=== PATIENT | female | born 1960 | race Caucasian/White ===

== ENCOUNTER → 2018-10-27 | Outpatient (CLI) | payer OTHER ==
--- NOTE | 2018-10-28 11:07 | MM ---
Reason for exam: screening (asymptomatic). History: Patient is postmenopausal. Family history of breast cancer in maternal grandmother. Physical Findings: A clinical breast exam by your physician is recommended on an annual basis and results should be correlated with mammographic findings. MG Screening Mammo w CAD Bilateral CC and MLO view(s) were taken. No prior studies available for comparison. The breast tissue is heterogeneously dense. This may lower the sensitivity of mammography. There is an approximately 2cm mass at the 12 o'clock position on the right breast 6.7cm from nipple. This is highly suspicious. No suspicious abnormality on the left. ASSESSMENT: Incomplete: need additional imaging evaluation, BI-RAD 0 RECOMMENDATION: Ultrasound of the right breast. [facility] will attempt to contact patient to return for ultrasound.
== END | disposition home or self-care (01) ==
LOC: RADMAMWWP 12:59
PROVIDERS: ATTEND Internal Medicine
DX: Z12.31 Encounter for screening mammogram for malignant neoplasm of breast (principal)
CPT/HCPCS: 77067

== ENCOUNTER → 2018-11-17 | Outpatient (CLI) | payer OTHER ==
[2018-11-17 12:39] VITALS: BP 133/73; PULSE 73; RESP 18; TEMP 97.4; BMI 27.1
--- NOTE | 2018-11-17 13:11 | P.GSHP ---
History of Present Illness H&P Date: 11/17/18 Chief Complaint: mass right breast Erin is a 58 year old white female who noted a lump in her right breast about 3 weeks ago. She than had a bilateral mammogram performed and [id number]. This revealed a 2 cm mass at the 12 o'clock position in the right breast. Ultrasound of the right breast was recommended. Ultrasound was performed and [id number]. This revealed a 2.9 x 3.4 cm spiculated solid lesion at 1:00, a 0.9 x 0.9 solid lesion at 1:00 and multiple nodes in the axilla of the largest measuring 3.2 x 1.9 cm. The patient states his noted some pinching in her breast. The patient has not noted any skin changes. She has not noted any nipple discharge. The reason she felt a mass initially was that her dog had jumped on her chest and after which she felt a lump in her breast. Family history: maternal grandmother: breast cancer Hormonal history: menarche: 9 : 1 at 27, 1 child, breast fed, yes menopause: 53 BCP: none hormones: none Past surgical history: 1. Dislocated elbow 2. Compound fracture right arm 3. Crushed ankle 4. D&C Past Medical History: 1. HTN 2. left arm won't extend all the way Social History: smoke: 1 PPD/30 years alcohol: none drugs: none - Constitutional Constitutional: Denies chills, Denies fever - EENT Eyes: bilateral blurred vision Ears: deny: decreased hearing, tinnitus Ears, nose, mouth and throat: Denies headache, Denies sore throat - Breasts Breasts: bilateral: as per HPI - Cardiovascular Cardiovascular: Reports high blood pressure - Respiratory Comment: smoker - Gastrointestinal Gastrointestinal: Denies abdominal pain, Denies diarrhea, Denies nausea, Denies vomiting - Genitourinary (Female) Genitourinary: Denies dysuria, Denies hematuria - Menstruation Menstruation: Reports postmenopausal - Musculoskeletal Comment: arthritis - Integumentary Integumentary: Denies pruritus, Denies rash - Neurological Neurological: Denies numbness, Denies weakness - Psychiatric Comment: bipolar post traumatic stress disorder Psychiatric: Reports anxiety, Reports depression - Endocrine Endocrine: Reports fatigue, Denies weight change - Hematologic/Lymphatic Comment: none - Allergic/Immunologic Allergic/Immunologic: Reports seasonal allergies Past Medical History History of Any Multi-Drug Resistant Organisms: None Reported Past Psychological History: Anxiety, Bipolar, Depression, PTSD Smoking Status: Current every day smoker Medications and Allergies Home Medications Medication Instructions Recorded Confirmed Type Cholecalciferol [Vitamin D3] 1,000 unit PO DAILY 11/17/18 11/17/18 History Lisinopril 30 mg PO DAILY 11/17/18 11/17/18 History Allergies Allergy/AdvReac Type Severity Reaction Status Date / Time No Known Allergies Allergy Unverified 11/17/18 12:39 Surgical - Exam Vital Signs Temp Pulse Resp BP Pulse Ox 97.4 F L 73 18 133/73 99 11/17/18 12:34 11/17/18 12:34 11/17/18 12:34 11/17/18 12:34 11/17/18 12:34 - General well developed, well nourished, no distress - Eyes normal ocular movement, no icteric - ENT no hearing loss, no congestion - Neck no masses, trachea midline - Respiratory normal respiratory effort, clear to auscultation - Cardiovascular Rhythm: regular Heart Sounds: normal: S1, S2 - Abdomen Abdomen: soft, non tender, no guarding, no rigid, no rebound - Integumentary normal turgor - Neurologic no disoriented, no combative - Musculoskeletal normal gait, normal posture - Psychiatric oriented to time, oriented to person, oriented to place, speech is normal, memory intact Breast examination: Right breast: Fibrocystic changes, increased nodularity at approximately the upper 12 o'clock position approximately 3 cm x 2 cm in size Right axilla: Adenopathy is noted Left breast: Multiple positional exam fibrocystic changes no dominant masses or nodules of concern Left axilla: Shoddy adenopathy Results Mammogram and ultrasound results reviewed Assessment and Plan Assessment: Impression: 1. Mass right breast 2. Right axillary adenopathy 3. Abnormal mammogram and ultrasound 4. Hypertension 5. Bipolar 6. Anxiety depression Plan: 1. Ultrasound-guided core biopsy right breast and axilla 2. Medical management of medical conditions 3. Follow-up after ultrasound-guided core biopsy CC: Donna Cadet, [facility]
== END ==
LOC: WWCWWP 11:54
PROVIDERS: ATTEND Surgery
DX: Z53.9 Procedure and treatment not carried out, unspecified reason (principal)

== ENCOUNTER → 2018-11-23 | Day surgery (SDC) | payer OTHER ==
[2018-11-23 11:58] VITALS: TEMP 98; BMI 27.1
--- NOTE | 2018-11-23 15:20 | USB ---
EXAMINATION TYPE: US biopsy breast VAD RT, MG diagnostic mammo RT wo CAD, US breast needle core addl RT DATE OF EXAM: 11/23/2018 CLINICAL HISTORY: R92.8 ABN MAMMO. TECHNIQUE: Ultrasound guided core biopsy of the right breast. COMPARISON: 10/27/2018 and 11/10/2018 FINDINGS: The procedure of ultrasound guided core biopsy was explained to the patient. Benefits, alt ernatives, and risks were discussed. An informed consent was then obtained. Preprocedural timeout w as performed. Preprocedural imaging demonstrates the previously described separate right breast destiney s at the 1:00 position to be contiguous measuring up to 3.8 cm in maximal dimension. Biopsy markers w ere placed at the most cranial and caudal aspect of this mass. At least 3 large morphologically abnor mal lymph nodes were seen on real-time imaging. Biopsy of one of these nodes was performed with [place] kacie placement. Site A: The patient was placed in supine positioning for imaging and for the procedure. The overlying skin was prepped and draped in usual sterile fashion. 10 cc of lidocaine buffered with bicarbonate w as used as anesthetic into the skin and subcutaneous tissue as well as 7 cc of lidocaine with epineph rine within the deeper subcutaneous soft tissues at the site of biopsy at the 1:00 position surroundi ng the breast mass. Under ultrasound guidance, a 12-gauge vacuum assisted biopsy gun device was used to obtain 5 core christine ples. Following this, a ribbon-shaped biopsy marker was left at the cranial aspect of the mass coil- shaped marker was left at the caudal aspect of the mass. Site B: The patient was placed in supine positioning for imaging and for the procedure. The overlying skin was prepped and draped in usual sterile fashion. 10 cc of lidocaine buffered with bicarbonate w as used as anesthetic into the skin and subcutaneous tissue up to an abnormal right axillary lymph no de. Under ultrasound guidance, a 18-gauge nonvacuum biopsy gun device was used to obtain 3 core samples. Following this, a Hydromark was left in lymph node. The patient tolerated the procedure well without any immediate complication. The patient was kept in the radiology department for short stay after the procedure and then discharged home in stable condi tion. IMPRESSION: Successful, uncomplicated ultrasound guided core biopsy of a highly suspicious the right breast, full pathology results to follow. Of note connection of the previously described discretely s eparate masses at the 1:00 position was demonstrated with maximal dimension of the 1:00 mass of 3.8 c m. Biopsy markers were left at the cranial and caudal aspects of this mass. Multiple morphologically abnormal lymph nodes are also seen within the right axilla, one of which was biopsied with a Hydromar k placed.
[2018-11-23 16:03] VITALS: BP 112/67; PULSE 68
== END | disposition home or self-care (01) ==
LOC: RADUSWWP 11:20
PROVIDERS: ATTEND Surgery
DX: C50.411 Malignant neoplasm of upper-outer quadrant of right female breast (principal); Z17.0 Estrogen receptor positive status [ER+]
CPT/HCPCS: 88305; 77065; 19083; 19084; A4648; J2001

== ENCOUNTER → 2018-12-02 | Outpatient (CLI) | payer OTHER ==
[2018-12-02 12:33] VITALS: BP 136/75; PULSE 92; RESP 20; TEMP 97.4; BMI 27.1
--- NOTE | 2018-12-02 12:53 | P.PN ---
Subjective Progress Note Date: 12/02/18 Principal diagnosis: Erin is a 58-year-old white female status post right breast core biopsy on which revealed an invasive ductal carcinoma. Additionally lymph node was biopsied which was also positive for invasive ductal carcinoma. The patient's clinical staging reveals a tumor to be approximately 3.8 cm, she is a positive axillary nodes. There are approximately 3 noted on her ultrasound at this time she isn't M0. The lesion is ER/KY positive and HER-2 negative. The patient has no complaints related to the biopsy. She is very anxious in general. Objective - Vital Signs Vital signs: Vital Signs Temp 97.4 F L 12/02/18 12:28 Pulse 92 12/02/18 12:28 Resp 20 12/02/18 12:28 BP 136/75 12/02/18 12:28 Pulse Ox 99 12/02/18 12:28 Intake & Output 12/01/18 12/02/18 12/02/18 18:59 06:59 18:59 Weight 71.668 kg - Exam BMI 27.1 - Constitutional General appearance: Present: average body habitus - EENT Eyes: Present: EOMI ENT: Present: hearing grossly normal - Respiratory Respiratory: bilateral: CTA - Cardiovascular Rhythm: regular Heart sounds: normal: S1, S2 - Integumentary Integumentary Comment(s): Breast examination on the right side: Core biopsy site has some scabbing added is no evidence of infection is otherwise clean and dry No hematoma mild ecchymosis - Musculoskeletal Musculoskeletal: Present: gait normal - Psychiatric Psychiatric Comment(s): anxious Assessment and Plan Assessment: Impression: 1. Stage IIA invasive ductal right breast cancer, patient is having a PET scan performed 2. Rule out metastatic disease 3. Anxiety 4.HTN 5. Compound fracture in the past on the right arm I discussed with the patient and her significant other the pathology results in detail. I have suggested that genetic testing be performed. I've also recomm ended a PET scan be performed. The patient will be seen by medical and radiation oncology, and presented at tumor board. Secondary to the size of the tumor and the axillary nodes I would consider neoadjuvant chemotherapy. The patient is being taken by our nurse navigator due to radiation oncology at this time additionally we are scheduling a PET scan as well as an appointment with medical oncology. She will be presented at tumor board. Plan: 1. PET scan 2. Appointment with medical oncology 3. Genetic testing 4. Appt with radiation oncology 5. Presentation of case at tumor board 6. Follow-up here in 3 weeks Cc: [facility]
== END | disposition home or self-care (01) ==
LOC: WWCWWP 12:02
PROVIDERS: ATTEND Surgery
DX: Z53.9 Procedure and treatment not carried out, unspecified reason (principal)

== ENCOUNTER → 2018-12-09 | Outpatient (CLI) | payer OTHER ==
--- NOTE | 2018-12-11 14:00 | PE ---
Nuclear medicine PET/CT HISTORY: Breast carcinoma right breast, initial Patient received 13.5 mCi F-18 FDG intravenously in delayed scanning was performed from the skull bas e to the mid thighs. Localization and attenuation correction CT scan was performed. Correlation to ultrasound right breast 11/10/2018 Neck and CHEST: There is right breast mass present with associated hypermetabolic uptake as noted on ultrasound. SUV is 9. Extensive right axillary adenopathy is also present. There is associated hyperm etabolic uptake. SUV is 8.9. Additionally there is internal mammary adenopathy, SUV is 4.3. Subcentim eter nodule is present on axial image 87 with smooth margins measuring only 5 mm. Questionable nodule left upper lobe axial image 72 anteriorly measuring only 4 mm. 3 mm nodule present in the left lower lobe on axial image 98. Axial image 83 in the central portion of the right upper lobe also shows a n odular density measuring 5 mm. ABDOMEN: No suspicious hypermetabolic uptake. No retroperitoneal adenopathy or ascites. There is a fo cus of low density present within the right lobe of the liver which is poorly defined but may measure as great as 5.5 cm. And extends towards the dome. Uptake in the anorectal region may be physiologic. Osseous structures show degenerative disc changes in the lower lumbar spine with facet arthropathy. N o suspicious hypermetabolic uptake. IMPRESSION: Findings compatible with patient's history of breast carcinoma as described. Indeterminat e liver mass.
== END | disposition home or self-care (01) ==
LOC: RADPETMAIN 17:51
PROVIDERS: ATTEND Surgery
DX: C50.212 Malignant neoplasm of upper-inner quadrant of left female breast (principal)
CPT/HCPCS: 78815; A9552

== ENCOUNTER → 2018-12-30 | Outpatient (CLI) | payer OTHER ==
--- NOTE | 2018-12-31 21:40 | BMR ---
EXAMINATION TYPE: MR breast BILAT wo/w con DATE OF EXAM: 12/30/2018 COMPARISON: Exams dating back to 10/27/2018 HISTORY: malignant neoplasm right breast TECHNIQUE: A series of fat and water weighted images in the long and short axis views of both breasts are obtained in conjunction with dynamic contrast MRI with subtraction technique. The patient was i njected with 7 mL intravenous Gadavist gadolinium contrast. Three-dimensional and additional postpr ocessing imaging is created on independent workstation and reviewed during official interpretation of this study. FINDINGS: The breasts are composed of heterogenous fibroglandular tissue. There is moderate background parenchy mal enhancement, limiting mammographic sensitivity. The biopsy-proven moderately differentiated an infiltrative ductal carcinoma at the 1:00 position in the right breast indicated with a biopsy marker creating susceptibility artifact measures up to 3.0 c m in transverse dimension with the index mass measuring up to 3.6 cm in anterior posterior dimension and at least 2.3 cm in craniocaudal dimension. However there are 3 smaller masses measuring 7 mm, 7 m m and 5 mm at the level of the biopsy marker that span a total distance of 5.8 cm in anterior posteri or dimension when accounted for. However there are multiple abnormal foci of enhancement at the infer ior margin of this mass spanning a distance of 5.7 cm in anterior posterior dimension. This mass in t he right breast does cross midline to involve the 11:00 position as well as an additional focus cross ing midline meeting criteria for multicentric disease. Within the left breast there is an abnormally enhancing mass with type I and type II, persistent and plateau, kinetics measuring 5 mm marked on series 702 image 237 (subtraction images) this is also see n on image 239 and 45 of the delayed sequence. This is located at the 11:00 position approximately 2. 5-3 cm from the nipple. Biopsy is recommended of this mass. No additional suspicious masses are seen on the left. No suspicious internal mammary nor left axillary adenopathy are seen however there is markedly abnorm al numerous right intramammary and axillary lymph nodes. Intramammary lymph node is seen in the upper outer quadrant on image 185 measuring 6 mm in short axis and markedly abnormal matted lymph nodes in the right axilla are marked on subtraction images measuring up to 3.1 x 2.7 cm together. There are a t least 9 abnormal lymph nodes in the axilla bone. Suspicious left breast mass (type II and type I kinetics). Biopsy-proven right breast malignancy type III kinetics. Targeted left upper quadrant ultrasound is recommended IMPRESSION: BI-RADS [id number] malignancy. 1. Multiple right breast masses are seen spanning an anterior posterior dimension of 5.8 cm both with in the upper inner quadrant and upper outer quadrant relating to multicentric disease. 2. Suspicious 5 mm left breast mass with abnormal enhancement at the 11:00 position for which second look ultrasound is recommended and percutaneous biopsy prior to surgical intervention of the right br east. If no sonographic correlate is seen MRI guided biopsy would be recommended. 3. Markedly abnormal right axillary adenopathy and solitary abnormal right intramammary lymph node ly mph node. No abnormal internal mammary or left axillary adenopathy.
== END ==
LOC: RADMRIMAIN 07:22
PROVIDERS: ATTEND Surgery
DX: C50.212 Malignant neoplasm of upper-inner quadrant of left female breast (principal); N63.11 Unspecified lump in the right breast, upper outer quadrant; R59.0 Localized enlarged lymph nodes
CPT/HCPCS: C8937; C8908; A9585; 77049

== ENCOUNTER → 2019-01-05 | Outpatient (CLI) | payer OTHER ==
--- NOTE | 2019-01-05 14:21 | USB ---
Reason for exam: additional evaluation requested from prior study. History: Patient is postmenopausal and has history of breast cancer at age 58. Family history of breast cancer in maternal grandmother. Malignant US breast needle core addl RT of the right breast, November 23, 2018. Malignant US biopsy breast VAD RT of the right breast, November 23, 2018. Physical Findings: Nurse did not find any significant physical abnormalities on exam. US Breast Limited LT Left limited breast ultrasound including focal area of concern, retroareolar and axilla demonstrates a 0.8 x 0.6 x 0.4cm solid, hypoechoic, vascular lesion at 11 o'clock corresponds with MR, fibroadenoma versus carcinoma and a 1.1 x 0.8 x 0.5cm mixed lesion at 11 o'clock, complex cystic cluster. These results were verbally communicated with the patient and result sheet given to the patient on 01/05/19. ASSESSMENT: Suspicious, BI-RAD 4 RECOMMENDATION: Ultrasound core biopsy of the left breast. (x 2) Called Dr. Valdivia with mammographic findings. Biopsy scheduled for 01/20/19 at 11:30. PRELIMINARY REPORT CALLED AND FAXED TO DR. VALDIVIA ON 01/05/19.
== END | disposition home or self-care (01) ==
LOC: RADUSWWP 12:36
PROVIDERS: ATTEND Surgery
DX: R92.8 Other abnormal and inconclusive findings on diagnostic imaging of breast (principal)

== ENCOUNTER → 2019-01-10 | Outpatient (CLI) | payer OTHER ==
--- NOTE | 2019-01-11 16:57 | ECHOF ---
Referral Reason:Z01.818 pre-chemo; C50.411 breast cancer MEASUREMENTS -------- HEIGHT: 162.6 cm WEIGHT: 71.7 kg BP: IVSd: 1.1 cm (0.6 - 1.1) LVIDd: 3.7 cm (3.9 - 5.3) LVPWd: 1.2 cm (0.6 - 1.1) IVSs: 1.5 cm LVIDs: 2.6 cm LVPWs: 1.6 cm LAESV Index (A-L): 17.57 ml/m Ao Diam: 3.1 cm (2.0 - 3.7) AV Cusp: 1.8 cm (1.5 - 2.6) LA Diam: 3.4 cm (2.7 - 3.8) EPSS: 0.9 cm MV E Rupesh: 0.60 m/s MV DecT: 194 ms MV A Rupesh: 0.84 m/s MV E/A Ratio: 0.71 RAP: 5.00 mmHg RVSP: 18.33 mmHg MV EF SLOPE: 53.71 mm/s (70 - 150) MV EXCURSION: 1.18 cm (> 18.000) FINDINGS -------- Sinus rhythm. This was a technically good study. The left ventricular size is normal. There is mild concentric left ventricular hypertrophy. Overa ll left ventricular systolic function is normal with, an EF between 55 - 60 %. The right ventricle is normal in size. The left atrial size is normal. Left atrium is normal size by volume. The right atrial size is normal. Aneurysmal septum The aortic valve is trileaflet and appears structurally normal. The mitral valve is normal. There is trace mitral regurgitation. The tricuspid valve appears structurally normal. Mild tricuspid regurgitation present. There is n o evidence of pulmonary hypertension. The right ventricular systolic pressure, as measured by Doppl er, is 18.33mmHg. There is no pulmonic regurgitation present. The aortic root size is normal. The inferior vena cava was not well visualized. There is no pericardial effusion. CONCLUSIONS -------- 1. Sinus rhythm. 2. This was a technically good study. 3. The left ventricular size is normal. 4. There is mild concentric left ventricular hypertrophy. 5. Overall left ventricular systolic function is normal with, an EF between 55 - 60 %. 6. The right ventricle is normal in size. 7. The left atrial size is normal. 8. Left atrium is normal size by volume. 9. The right atrial size is normal. 10. Aneurysmal septum 11. The aortic valve is trileaflet and appears structurally normal. 12. The mitral valve is normal. 13. There is trace mitral regurgitation. 14. The tricuspid valve appears structurally normal. 15. Mild tricuspid regurgitation present. 16. There is no evidence of pulmonary hypertension. 17. The right ventricular systolic pressure, as measured by Doppler, is 18.33mmHg. 18. There is no pulmonic regurgitation present. 19. The aortic root size is normal. 20. The inferior vena cava was not well visualized. 21. There is no pericardial effusion. UNDERPRESSER HAND: Alejandra Mccarthy RDCS
== END | disposition home or self-care (01) ==
LOC: RADECHMAIN 14:15
PROVIDERS: ATTEND Internal Medicine Hematology & Oncology
DX: Z01.818 Encounter for other preprocedural examination (principal); I07.1 Rheumatic tricuspid insufficiency; C50.411 Malignant neoplasm of upper-outer quadrant of right female breast
CPT/HCPCS: 93306

== ENCOUNTER → 2019-01-12 | Day surgery (SDC) | payer OTHER ==
[2019-01-10 12:55] VITALS: BMI 27.1
[~2019-01-12] MED LIST: BUPIVACAIN-EPI 0.25%-1:200,000 30 ML VIAL SQ ONE; DEXAMETHASONE SOD PHOSPHATE 10 MG/ML 1 ML VIAL IV ONE; HEPARIN SODIUM,PORCINE 10,000 UNIT/ML 1 ML VIAL IV ONE; HEPARIN SODIUM,PORCINE 100 UNIT/ML 5 ML VIAL IV ONE; HYDROmorphone 0.5 MG/0.5 ML SYRINGE IVP PRN; LACTATED RINGERS 1,000 ML IV SCH; LIDOCAINE 1% 20 ML VIAL (10MG/ML) FOR IV START INTRADERMA ONE; MIDAZOLAM 2 MG/2 ML VIAL IV PRN; MIDAZOLAM 2 MG/2 ML VIAL ONE; ONDANSETRON 4 MG/2 ML VIAL IVP ONE; PROPOFOL 10 MG/ML 20 ML VIAL IV ONE; Pre Op ABX Message 1 EACH MISC MISCELLANE ONE; SCOPOLAMINE 1.5MG/72HR PATCH TRANSDERM ONE; ceFAZolin IN SWFI 2 GM/20 ML SYRINGE IVP ONE; fentaNYL (PF) 50 MCG/ML 2 ML AMP ONE
[2019-01-12 10:08] VITALS: TEMP 97.8
--- NOTE | 2019-01-12 11:13 | P.GSHP ---
History of Present Illness H&P Date: 01/12/19 CHIEF COMPLAINT: Breast cancer HISTORY OF PRESENT ILLNESS: The patient is a 50-year-old female diagnosed with breast cancer. She needs a Mediport placement for chemotherapy. PAST MEDICAL HISTORY: See list PAST SURGICAL HISTORY: See list CURRENT MEDICATIONS: See list. ALLERGIES: See list. SOCIAL HISTORY: No active tobacco or alcohol use. FAMILY HISTORY: Noncontributory. REVIEW OF ORGAN SYSTEMS: CONSTITUTIONAL: Has weight loss. PHYSICAL EXAMINATION: Vital signs: Stable GENERAL: Well developed and in no acute distress. Pleasant. HEENT: No sclera icterus. Extraocular movements grossly intact. Moist buccal mucosa. Head is atraumatic, normocephalic. Hears conversational speech. No nasal drainage. NECK: Supple without lymphadenopathy. No JV distention. CHEST: Non-labored respirations and equal bilateral excursions. CARDIOVASCULAR: Regular rate and rhythm. Palpable 2+ radial pulses. ABDOMEN: Nontender. MUSCULOSKELETAL: No clubbing, cyanosis or edema. NEUROLOGIC: No focal or lateralizing signs. PSYCH: Appropriate affect. Alert and oriented to person, place and time. ASSESSMENT: 1. Breast cancer 2. Need for chemotherapeutic access. PLAN: 1. Agree with Port-A-Cath placement. Past Medical History Past Medical History: Hypertension Additional Past Medical History / Comment(s): HAYFEVER. RT BREAST CA DIAGNOSED 12/2018. History of Any Multi-Drug Resistant Organisms: None Reported Additional Past Surgical History / Comment(s): dislocated elbow; compound fracture right arm; crushed ankle; D&C; Past Anesthesia/Blood Transfusion Reactions: No Reported Reaction Smoking Status: Current every day smoker - Past Family History Mother Family Medical History: No Reported History Medications and Allergies Home Medications Medication Instructions Recorded Confirmed Type Cholecalciferol [Vitamin D3] 5,000 unit PO DAILY 11/17/18 01/12/19 History Lisinopril 30 mg PO DAILY 11/17/18 01/12/19 History ALPRAZolam [Xanax] 0.25 mg PO BID PRN 01/10/19 01/12/19 History QUEtiapine [SEROquel] 50 mg PO TID 01/10/19 01/12/19 History Allergies Allergy/AdvReac Type Severity Reaction Status Date / Time ACTH INJECTION Allergy HEAD Uncoded 01/12/19 10:04 SWELLED UP Surgical - Exam Vital Signs Temp Pulse Resp BP Pulse Ox 97.8 F 66 18 156/75 99 01/12/19 10:07 01/12/19 10:07 01/12/19 10:07 01/12/19 10:07 01/12/19 10:07
--- NOTE | 2019-01-12 12:20 | P.OP ---
Date of Procedure: 01/12/19 Description of Procedure: SURGEON: DAPHNEY RHOADES MD SLITTING MACHINE FEEDER: None. PREOPERATIVE DIAGNOSES: 1. Breast cancer 2. Need for chemotherapeutic access. 3. Hypertensive heart disease 4. Anxiety 5. Bipolar disorder 6. Depressive disorder POSTOPERATIVE DIAGNOSES: 1. Breast cancer 2. Need for chemotherapeutic access. 3. Hypertensive heart disease 4. Anxiety 5. Bipolar disorder 6. Depressive disorder PROCEDURES PERFORMED: 1. Ultrasound guided central venous access of the right internal jugular venous vein. 2. Fluoroscopic guidance for central venous access right internal jugular vein less than 1 seconds. 3. Placement of right internal jugular power port 6 Lao by Brainloop, Xcela Plus Port ANESTHESIA: IV sedation with local. ESTIMATED BLOOD LOSS: 5 mL. SPECIMENS REMOVED: None. COMPLICATIONS: None. INDICATIONS: The patient is a 58-year-old female recently diagnosed with breast cancer. She presents for chemotherapeutic access. Benefits and risks of surgical intervention were described including bleeding, infection, mechanical problems with his port. Informed consent was obtained. DESCRIPTION OR PROCEDURE: Patient was brought into the operating room, laid in supine position. After adequate IV sedation, the chest and right neck were prepped and draped in a standard sterile fashion including the shoulder with ChloraPrep. Timeout protocol was confirmed with the surgical team regarding the patient's name, procedure to be performed including preoperative medications for which she received IV antibiotics. Bilateral SCDs were placed. An ultrasound was used to capture views of the right internal jugular vein including right carotid artery, which was patent and without thrombus along its course. The right IJ was then localized using anesthetic for the skin. A 16 Lao needle was used to access the IJ. A guidewire was advanced into the IJ with dark nonpulsatile venous blood. Two fingerbreadths distal to the clavicle, on the lateral third, a transverse 1.5 to 2 cm incision was deepened into the skin after localizing the skin. A pocket was created for the port. The port on the back table was flushed with heparinized saline and then attached to the catheter tubing. An adapter was fastened to the actual port site over the tubing. The port easily had fit snug into the pocket. A subcutaneous tunneler was placed along the open end of the tubing and brought out through the separate stab incision. Fluoroscopic guidance confirmed no kinking along the tubing and the port site. Next, the J-wire was exchanged for a catheter sheath for which the tubing was cut to 20 cm and then advanced through the catheter sheath. The Peel-away sheath was then removed and the tubing was secured at the junction of the superior vena cava as well as the right atrium. The tubing was found to be crossed however functional. This was all done under fluoroscopic guidance under 1 seconds. Easy pullback as well as return and aspiration was obtained of the port site. The skin incision was closed using layers using 3-0 Vicryl for the subcu followed by 4-0 Monocryl in a running subcuticular fashion. At the stick site this was also reapproximated using 4-0 Monocryl. The incisions were covered with Optifoam, The skin was cleansed and Exofin liquid glue was applied. Optifoam dressing was placed over the port site. A total of 20 mL of local anesthetic was placed. At the end of the procedure, needle, sponge, and instrument count was verified correct by certified surgical tech/first assistant. Heparin lock of 5 mL was placed. The patient was awoken and pain free and taken to the second stage postanesthesia care unit. The patient tolerated the procedure well. FINDINGS: 1. No thrombus encountered along the right carotid artery or internal jugular vein. 2. Access of the right internal jugular vein under ultrasound guidance. 3. Fluoroscopy of less than 1 seconds. Plan - Discharge Summary Discharge Rx Participant: No New Discharge Prescriptions: New Acetaminophen [Tylenol] 325 mg PO Q4H PRN #20 tab PRN Reason: Pain Continue Lisinopril 30 mg PO DAILY Cholecalciferol [Vitamin D3 (25 Mcg = 1000 Iu)] 5,000 unit PO DAILY QUEtiapine [SEROquel] 50 mg PO TID ALPRAZolam [Xanax] 0.25 mg PO BID PRN PRN Reason: Anxiety Discharge Medication List Cholecalciferol [Vitamin D3 (25 Mcg = 1000 Iu)] 5,000 unit PO DAILY 11/17/18 [History] Lisinopril 30 mg PO DAILY 11/17/18 [History] ALPRAZolam [Xanax] 0.25 mg PO BID PRN 01/10/19 [History] QUEtiapine [SEROquel] 50 mg PO TID 01/10/19 [History] Acetaminophen [Tylenol] 325 mg PO Q4H PRN #20 tab 01/12/19 [Rx] Follow up Appointment(s)/Referral(s): Daphney Rhoades MD [STAFF PHYSICIAN] - As Needed Patient Instructions/Handouts: *Surgery [facility] - (Anesthesia) Endoscopy Discharge Instructions, Implanted Venous Access Port (GEN), How to Care for Your Implanted Venous Access Port (DC) Activity/Diet/Wound Care/Special Instructions: May shower. No bathtub soaks. Remove dressing January 17. Expect bruising that will resolve in 2 weeks. Sleep on elevated pillows 2 to 3. May use tylenol for pain. No lifting of right arm over 10 pounds for 1 week. Discharge Disposition: HOME SELF-CARE
[2019-01-12 12:39] VITALS: BP 107/64; RESP 16
--- NOTE | 2019-01-12 12:48 | FL ---
Fluoroscopy INDICATION: Pain FINDINGS: Fluoroscopy time: 1 seconds. Images obtained: 1. IMPRESSIONS: 1. Documentation of fluoroscopy.
[2019-01-12 13:32] VITALS: PULSE 59
--- NOTE | 2019-01-12 13:37 | XR ---
EXAMINATION TYPE: XR chest 1V confirm line [facility] DATE OF EXAM: 01/12/2019 COMPARISON: None INDICATION: Port placement TECHNIQUE: Single frontal view of the chest is obtained. FINDINGS: The heart size is normal. The pulmonary vasculature is normal. The lungs are clear. Port is present on the right with the tip in superior vena cava region. No pneumothorax is evident IMPRESSION: 1. Placement of a port on the right with the tip in superior vena cava region. No pneumothorax is [place].
== END | disposition home or self-care (01) ==
LOC: OR 09:41
PROVIDERS: ATTEND Surgery Plastic and Reconstructive Surgery
DX: C50.911 Malignant neoplasm of unspecified site of right female breast (principal); Z45.2 Encounter for adjustment and management of vascular access device; F31.9 Bipolar disorder, unspecified; F41.9 Anxiety disorder, unspecified; I11.9 Hypertensive heart disease without heart failure; I10 Essential (primary) hypertension; E78.5 Hyperlipidemia, unspecified; F17.210 Nicotine dependence, cigarettes, uncomplicated; Z79.899 Other long term (current) drug therapy; Z98.890 Other specified postprocedural states
CPT/HCPCS: 77001; 36558; C1788; J2250; J1644; J1642; J1100; J2405; J3010; J2704; J0690

== ENCOUNTER → 2019-01-20 | Day surgery (SDC) | payer OTHER ==
[2019-01-20 10:57] VITALS: RESP 16; BMI 61.7
--- NOTE | 2019-01-20 13:01 | USB ---
EXAMINATION TYPE: US biopsy breast add'l VAD LT, US biopsy breast VAD LT, MG diagnostic mammo LT wo CAD DATE OF EXAM: 01/20/2019 CLINICAL HISTORY: R92.8. TECHNIQUE: Ultrasound guided core biopsy of left breast. COMPARISON: MRI breast dated 12/30/2018 and left breast ultrasound dated 01/05/2019 FINDINGS: The procedure of ultrasound guided core biopsy was explained to the patient. Benefits, alternatives, and risks were discussed. An informed consent was then obtained. Preprocedural timeout was performed. Site A: The patient was placed in supine positioning for imaging and for the procedure. The overlying skin was prepped and draped in usual sterile fashion. 10 cc of 1% lidocaine was used as anesthetic into the skin and subcutaneous tissue up the 0.8 cm solid vascular mass representing either a fibroadenoma versus carcinoma at the 11:00 position within the left breast. Under ultrasound guidance, a 12-gauge vacuum assisted biopsy gun device was used to obtain 4 core samples. Following this, a ribbon-shaped biopsy marker was left at the site of biopsy within the mass. Site B: The patient was placed in supine positioning for imaging and for the procedure. The overlying skin was prepped and draped in usual sterile fashion. Lidocaine buffered with bicarbonate was used as anesthetic into the skin and subcutaneous tissue up to the 1.1 cm complex cystic cluster at the 11:00 position within the left breast. Under ultrasound guidance, a 12-gauge vacuum assisted biopsy gun device was used to obtain 3 core samples. Following this, a coil-shaped biopsy marker left at the site of biopsy. Slight migration is suspected and if localization is needed, low suspicion, ultrasound-guided localization would be recommended of the residual mass. The patient tolerated the procedure well without any immediate complication. The patient was kept in the radiology department for short stay after the procedure and then discharged home in stable condition. IMPRESSION: Successful, uncomplicated ultrasound guided core biopsy of a solid mass at the 11:00 position (site A) corresponding to the MRI guided mass and a complex cystic cluster (site B) also development o'clock position, full pathology results to follow. Note migration of the coil-shaped biopsy marker of the second site. A localization is needed ultrasound-guided localization would be recommended of the residual mass. Pathology Results: Benign A. LEFT BREAST, ELEVEN O'CLOCK ZONE A, ULTRASOUND GUIDED CORE BIOPSY: Fibroadenoma/fibroadenomatoid hyperplasia with superimposed proliferative fibrocystic changes including columnar cell hyperplasia, usual type ductal hyperplasia, cysts, fibrosis and adenosis. B. LEFT BREAST, ELEVEN O'CLOCK ZONE B/C, ULTRASOUND GUIDED CORE BIOPSY: Scar and background fibrocystic changes including cysts and fibrosis. Recommendation Follow up mammogram of the left breast in 6 months. (Surgical consult for right breast cancer care) JEWELL
[2019-01-20 13:12] VITALS: BP 131/78; PULSE 78; TEMP 98
== END ==
LOC: RADUSWWP 10:23
PROVIDERS: ATTEND Surgery
DX: D24.2 Benign neoplasm of left breast (principal); N62 Hypertrophy of breast; N60.32 Fibrosclerosis of left breast; N60.22 Fibroadenosis of left breast; Z88.8 Allergy status to other drugs, medicaments and biological substances
CPT/HCPCS: 88305; 77065; 19083; 19084; A4648; J2001

== ENCOUNTER → 2019-01-27 | Outpatient (CLI) | payer OTHER ==
[2019-01-27 14:04] VITALS: BP 95/63; PULSE 78; RESP 16; TEMP 97.5; BMI 28.1
--- NOTE | 2019-01-27 14:46 | P.PN ---
Subjective Progress Note Date: 01/27/19 Principal diagnosis: Right breast biopsy-proven carcinoma Erin is a 58-year-old white female who initially presented with a complaint of noticing a lump in her right breast several weeks prior. She had bilateral mammogram performed and this revealed a 2 cm mass at the 12 o'clock position in the right breast. Ultrasound of the right breast was recommended. Ultrasound was performed on 32 819 this revealed a 2.9 x 2.4 cm spiculated solid lesion at 1:00, a 0.9 x 0.9 solid lesion at 1:00, moderate multiple nodes in the axilla the largest which measured 3.2 cm. The patient subsequently had ultrasound core biopsy infiltrating ductal carcinoma at this BC biopsy and right axillary lymph node positive for infiltrating ductal carcinoma. She subsequently had a breast MRI performed and the breast MRI revealed a questionable lesion in the contralateral left breast. She then underwent an ultrasound directed to this area a lesion was identified and a core biopsy was obtained. This lesion was benign on core biopsy. The patient has been seen by medical oncology. She has been recommended to undergo neoadjuvant preoperative chemotherapy. The patient has just completed her first course of chemotherapy. The patient would like to have breast conserving surgery when the time for surgical intervention is appropriate. She has met with radiation oncology. Family history: Maternal grandmother: Breast cancer Past surgical history: 1. Dislocated elbow 2. Flexure Right Arm 3. Question Could 4. D&C Past Medical History: 1. Hypertension 2. Left M1 Extend All the Way Social History: Smoking: One Pack per Day for 30 Years Alcohol: Negative Drugs: Negative Objective - Vital Signs Vital signs: Vital Signs Temp 97.5 F L 01/27/19 13:56 Pulse 78 01/27/19 13:56 Resp 16 01/27/19 13:56 BP 95/63 01/27/19 13:56 Pulse Ox 98 01/27/19 13:56 Intake & Output 01/26/19 01/27/19 01/27/19 18:59 06:59 18:59 Weight 74.389 kg - Exam BMI 28.2 - Constitutional General appearance: Present: average body habitus - EENT Eyes: Present: EOMI ENT: Present: hearing grossly normal - Neck Neck: Present: normal ROM - Respiratory Respiratory: bilateral: CTA - Cardiovascular Rhythm: regular Heart sounds: normal: S1, S2 - Gastrointestinal General gastrointestinal: Present: soft - Integumentary Integumentary Comment(s): Impression: 1. Patient with a biopsy-proven grade 2 12:00 breast Mass. of ductal carcinoma in situ, ER/KS positive, HER-2 negative, right axillary lymph node grade 3 invasive ductal carcinoma ER/KS positive, HER-2 negative, patient is recommended for neoadjuvant chemotherapy 2. Hypertension 3. Hyperlipidemia 4. Depression 5. Stage IIB right breast cancer 6. Biopsy left breast negative for cancer Plan: 1. The patient is going to undergo neoadjuvant chemotherapy 2. She most likely undergo breast preservation if she responds well to neoadjuvant chemotherapy 3. The cath in place 4. Follow-up in 3 months Cc: Donna Cadet N.P. [facility]
== END | disposition home or self-care (01) ==
LOC: WWCWWP 13:43
PROVIDERS: ATTEND Surgery
DX: Z53.9 Procedure and treatment not carried out, unspecified reason (principal)

== ENCOUNTER → 2019-03-03 | Day surgery (SDC) | payer OTHER ==
[2019-03-02 13:53] VITALS: BMI 27.8
[~2019-03-03] MED LIST changes: -BUPIVACAIN-EPI 0.25%-1:200,000 30 ML VIAL SQ ONE; -DEXAMETHASONE SOD PHOSPHATE 10 MG/ML 1 ML VIAL IV ONE; -HEPARIN SODIUM,PORCINE 10,000 UNIT/ML 1 ML VIAL IV ONE; -HEPARIN SODIUM,PORCINE 100 UNIT/ML 5 ML VIAL IV ONE; -HYDROmorphone 0.5 MG/0.5 ML SYRINGE IVP PRN; -LACTATED RINGERS 1,000 ML IV SCH; -LIDOCAINE 1% 20 ML VIAL (10MG/ML) FOR IV START INTRADERMA ONE; +LIDOCAINE 1% INJ 10MG/ML (20 ML MDV) ONE; +LIDOCAINE 1% INJ 10MG/ML (20 ML MDV) SQ ONE; -MIDAZOLAM 2 MG/2 ML VIAL IV PRN; -MIDAZOLAM 2 MG/2 ML VIAL ONE; -ONDANSETRON 4 MG/2 ML VIAL IVP ONE; -PROPOFOL 10 MG/ML 20 ML VIAL IV ONE; -Pre Op ABX Message 1 EACH MISC MISCELLANE ONE; -SCOPOLAMINE 1.5MG/72HR PATCH TRANSDERM ONE; -ceFAZolin IN SWFI 2 GM/20 ML SYRINGE IVP ONE; -fentaNYL (PF) 50 MCG/ML 2 ML AMP ONE
--- NOTE | 2019-03-03 09:40 | IR ---
PICC LINE PLACEMENT: HISTORY: Chemotherapy PROCEDURE: Ultrasound and fluoroscopic guidance of PICC line placement. COMPLICATIONS: None ANESTHESIA: 1. 1% Lidocaine locally. FINDINGS/TECHNIQUE: The procedure was explained to the patient. The risks, complications, benefits and alternatives were discussed and any questions were answered. Informed consent was obtained. The patient was placed supine on the fluoroscopic table and prepped and draped in the usual sterile fash ion. Utilizing a 21 gauge needle and sonographic and fluoroscopic guidance, access in the left basi lic vein vein was achieved and there is placement of a 0.018 guidewire. The vein is patent. A 4-F s judy was placed over the guidewire. The guidewire and dilator were removed and a 4-F. PICC line was placed through the sheath with the tip at the level of the SVC. The sheath was removed, the cathete r was flushed and sutured into position. The patient was stable throughout the procedure and remaine d stable upon discharge from the Department of Radiology. The vein puncture was patent under ultrasound. A bonilla scale image was obtained to document patency of the vein punctured. All elements of the maximal barrier technique were utilized. FLUOROSCOPY TIME: 0.2 minutes and one image submitted IMPRESSION: Successful PICC line placement under ultrasound and fluoroscopic guidance.
== END ==
LOC: CATHCVL 08:27
PROVIDERS: ATTEND Internal Medicine Hematology & Oncology
DX: C50.411 Malignant neoplasm of upper-outer quadrant of right female breast (principal); Z79.52 Long term (current) use of systemic steroids; Z79.899 Other long term (current) drug therapy; I10 Essential (primary) hypertension; E78.5 Hyperlipidemia, unspecified; F32.9 Major depressive disorder, single episode, unspecified; Z87.891 Personal history of nicotine dependence
CPT/HCPCS: 36573; C1751; C1769; J2001

== ENCOUNTER → 2019-05-25 | Outpatient (CLI) | payer OTHER ==
[2019-05-25 10:49] VITALS: BP 152/90; PULSE 74; RESP 16; TEMP 97.9; BMI 26.9
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
== END | disposition home or self-care (01) ==
LOC: WWCWWP 10:34
PROVIDERS: ATTEND Surgery
DX: Z53.9 Procedure and treatment not carried out, unspecified reason (principal)

== ENCOUNTER → 2019-06-06 | Outpatient (CLI) | payer OTHER ==
--- NOTE | 2019-06-06 14:23 | USB ---
Reason for exam: clinical finding. History: Patient is postmenopausal and has history of breast cancer at age 58. Family history of breast cancer in maternal grandmother. Benign US biopsy breast VAD LT of the left breast, January 20, 2019. Benign US biopsy breast add'l VAD LT of the left breast, January 20, 2019. Malignant US breast needle core addl RT of the right breast, November 23, 2018. Malignant US biopsy breast VAD RT of the right breast, November 23, 2018. Physical Findings: Nurse Summary: BB 2cm (nurse kp). US Breast RT Right complete breast ultrasound includes all four quadrants, the retroareolar region and axilla. Finding demonstrates a 1.4 x 3.0 x 0.7cm irregular, solid, hypoechoic, vascular lesion at 1 o'clock, a 0.5 x 0.5 x 0.3cm oval, solid, hyperechoic lesion at 2 o'clock, a 1.9 x 2.2 x 0.8cm oval axilla node, nonenlarged, improved, no cortex thickening and duct ectasia at the posterior nipple. These results were verbally communicated with the patient and result sheet given to the patient on 06/06/19. ASSESSMENT: Known biopsy proven malignancy, BI-RAD 6 RECOMMENDATION: Surgical consultation and localization and excision of the right breast. If breast conservation is pursued, ultrasound guided locationization is recommended and post procedure mammogram to assess relation to biopsy marker.
== END | disposition home or self-care (01) ==
LOC: RADUSWWP 12:29
PROVIDERS: ATTEND Surgery
DX: R92.8 Other abnormal and inconclusive findings on diagnostic imaging of breast (principal)

== ENCOUNTER 2019-06-13 07:30 | Day surgery (SDC) | payer OTHER ==
[~2019-06-13 07:30] MED LIST changes: +DEXAMETHASONE SOD PHOSPHATE 10 MG/ML 1 ML VIAL IV ONE; +HEPARIN SODIUM,PORCINE 5,000 UNIT/ML 1 ML VIAL SQ ONE; +HYDROmorphone 0.5 MG/0.5 ML SYRINGE IVP PRN; +LACTATED RINGERS 1,000 ML IV SCH; +LIDOCAINE 1% 20 ML VIAL (10MG/ML) FOR IV START INTRADERMA PRN; -LIDOCAINE 1% INJ 10MG/ML (20 ML MDV) ONE; -LIDOCAINE 1% INJ 10MG/ML (20 ML MDV) SQ ONE; +MIDAZOLAM 2 MG/2 ML VIAL IV PRN; +ONDANSETRON 4 MG/2 ML VIAL IVP ONE; +Pre Op ABX Message 1 EACH MISC MISCELLANE ONE; +SCOPOLAMINE 1.5MG/72HR PATCH TRANSDERM ONE
[2019-06-13 07:57] VITALS: RESP 16
[2019-06-13] MEDS ORDERED: ALPRAZolam 0.25 MG TAB PO ONE (08:01)
[2019-06-13] MEDS ORDERED: LIDOCAINE 1% INJ 10MG/ML (20 ML MDV) SQ ONE ×2 (09:15→09:34)
[2019-06-13] MEDS ORDERED: HEPARIN SODIUM,PORCINE 5,000 UNIT/ML 1 ML VIAL SQ ONE (09:43)
--- NOTE | 2019-06-13 09:46 | P.NAPBC ---
NAPBC Queries - NAPBC Queries Was patient's case review presented at [facility] tumor board? If no, comment.: Yes Was patient's pathology reviewed at [facility]? If no, comment.: Yes Was breast conservation surgery offered? If no, comment.: Yes Was sentinel node biopsy offered? If no, comment.: Yes Was diagnosis confirmed by percutaneous core biopsy? If no, comment.: Yes Is patient mastectomy patient?: No Was a preop referral to reconstructive surgeon offered?: Yes (patient wishes breast conservation) Clinical Stage: Stage IIB, [id number]+/DC+ Her2-
[2019-06-13] MEDS ORDERED: METHYLENE BLUE 10 MG/ML (10 ML VIAL) IV STA (10:10)
[2019-06-13] MEDS ORDERED: ceFAZolin 1,000 MG VIAL ONE (10:24)
[2019-06-13] MEDS ORDERED: fentaNYL (PF) 50 MCG/ML 2 ML AMP ONE (10:24)
[2019-06-13] MEDS ORDERED: MIDAZOLAM 2 MG/2 ML VIAL ONE (10:24)
[2019-06-13] MEDS ORDERED: LIDOCAINE 1% INJ 10MG/ML (20 ML MDV) ONE (10:24)
[2019-06-13] MEDS ORDERED: SODIUM CHLORIDE 0.9% 100 ML BAG ONE (10:24)
[2019-06-13] MEDS ORDERED: ePHEDrine SULFATE/0.9% NACL/PF 50 MG/5 ML SYRINGE IV ONE (10:24)
[2019-06-13] MEDS ORDERED: PROPOFOL 10 MG/ML 20 ML VIAL IV ONE (10:24)
[2019-06-13] MEDS ORDERED: SUCCINYLCHOLINE CHLORIDE 100 MG/5 ML SYR IV ONE (10:24)
--- NOTE | 2019-06-13 10:26 | NM ---
EXAMINATION TYPE: NM sentinel node injection DATE OF EXAM: 06/13/2019 COMPARISON: MRI of the breast dated 12/30/2018 HISTORY: Known right-sided breast cancer with request for sentinel node injection. TECHNIQUE AND FINDINGS: The procedure of sentinel lymph node injection was explained to the patient. The benefits, alternatives, and risks were discussed. An informed consent was then obtained. Prepr ocedural timeout was performed. Overlying skin is cleaned with sterile alcohol. Following this, 488 uCi Tc99m Tilmanocept was inject ed in the upper outer aspect of the right nipple intradermally. The patient tolerated the procedure well without any immediate complication. The patient was kept in the radiology department for short stay after the procedure and then taken to surgery for surgical p rocedure what is presumed intraoperative gamma probe will be used for sentinel lymph node detection. IMPRESSION: Right breast radiotracer injection for sentinel node localization as above.
[2019-06-13] MEDS ORDERED: DEXTROSE 5% IV ONE ×4 (10:30)
[2019-06-13] MEDS ORDERED: WATER IV ONE ×4 (10:30)
[2019-06-13] MEDS ORDERED: METHYLENE BLUE IV ONE ×4 (10:30)
[2019-06-13] MEDS ORDERED: LACTATED RINGERS 1,000 ML IV ONE (11:59)
--- NOTE | 2019-06-13 13:13 | P.OP ---
Date of Procedure: 06/13/19 Preoperative Diagnosis: Right breast cancer status post neoadjuvant chemotherapy Postoperative Diagnosis: Same Procedure(s) Performed: Right breast injection of methylene blue for lymphatic mapping, sentinel node biopsy, excisional lumpectomy of the area of concern and right breast via donought mastopexy with tissue transfer and onco- plastic tissue rearrangement Anesthesia: AARON Surgeon: Marlene Valdivia Estimated Blood Loss (ml): 15 IV fluids (ml): 1,000 Pathology: other (Lymph node right axilla, left breast tissue lumpectomy) Condition: stable Disposition: same day Indications for Procedure: Right breast cancer status post neoadjuvant chemotherapy Operative Findings: Fatty replaced nodes right axilla, dense breast tissue Description of Procedure: Erin was taken to the operating room and following induction of anesthesia 6 mL of half-strength methylene blue were injected in the periareolar area on the right. The breast was then massaged for 3 minutes. Following this the right br east and axilla were prepped and draped in a sterile fashion. The arm was free draped. The area of the axilla was approached initially. Preoperatively lymphokine, had been in injected in the periareolar area. Using the neoprobe the area of greatest radioactivity was identified. An incision was made into the area of the axilla at the axillary hairline. This was carried through the skin and subcutaneous tissue to the axillary tissue. Some of the axilla tissue appeared to be firm believed to be reactive from the prior neoadjuvant chemotherapy. Dissection in this area remove this tissue. After we entered the area of the axilla using the blue dye as a tracer as well as the neoprobe a very small approximately 3-4 mm radioactive blue lymph node was identified. The 10 second count on the lymph node was 1732. A second area of adenopathy was palpable with a minimal amount of blue discoloration, the radioactivity was very minimal but this area was resected as well. Further interrogation of the axilla revealed a 10 second count of approximately 7. Examination did not reveal any other lymph nodes of concern. Several palpable nodes had been resected. These appeared to be fatty replaced. Vessels of concern were ligated using 3-0 Vicryl suture. The axilla was then irrigated. The thoracodorsal nerve was palpated but not visually identifeid. The area of the axillary vein was identified and the tissues which were radioactive had been swept inferior from this location. After we were assured that hemostasis was attained the deep tissues were closed using 3-0 Vicryl suture. This is followed by closure of the skin with a 4-0 Monocryl. Consideration of a drain was entertained but it was not felt to be necessary. The area of the breast was then approached. A circumareolar incision which was not full-thickness was utilized. A second incision approximately 1 cm superior to this was performed and again not full-thickness and the tissue was de- epithelialized. The breast tissue was then entered . The superior incision. The tissue was dissected between the skin and the breast tissue and the subcutaneous tissue up to the area of the needles which had been placed pr eoperatively. These were elevated and dissection was performed medial and lateral to the needles to the pectoralis major muscle. Dissection was performed off of the pectoralis major muscle removing the tissue perpendicular to the area of entry into the breast. After the tissue had been removed it was painted for orientation. It was sent to radiology and confirmation the area of concern had been removed was obtained. The area was well irrigated no evidence of bleeding was noted. Titanium clips were placed to kacie the cavity. The medial and lateral pillars were then freed using the electrocautery device. The measurements medially were approximately 4 cm x 8 cm and laterally approximately 5 cm x 8 cm. This accounted for 72 cm of tissue mobilized. This tissue was drawn together in the midline and reapproximated using 3-0 Vicryl suture. Onco- plastic rearrangement close the defect of concern. The periareolar incision was closed using a 4-0 Vicryl suture in the dermal tissue. This was followed by a 4-0 Monocryl subcuticular suture. A 4-0 nylon skin suture was then placed. The patient tolerated the procedure in stable condition. All instrument and sponge counts were correct at the end of the case.
--- NOTE | 2019-06-13 13:15 | P.DS ---
Providers Attending physician: Marlene Valdivia Primary care physician: Stated None Plan - Discharge Summary Discharge Rx Participant: Yes New Discharge Prescriptions: No Action Cholecalciferol [Vitamin D3 (25 Mcg = 1000 Iu)] 5,000 unit PO DAILY ALPRAZolam [Xanax] 0.25 mg PO BID PRN PRN Reason: Anxiety Gabapentin [Neurontin] 300 mg PO HS Discharge Medication List Cholecalciferol [Vitamin D3 (25 Mcg = 1000 Iu)] 5,000 unit PO DAILY 11/17/18 [History] ALPRAZolam [Xanax] 0.25 mg PO BID PRN 01/10/19 [History] Gabapentin [Neurontin] 300 mg PO HS 06/12/19 [History] Follow up Appointment(s)/Referral(s): Marlene Valdivia MD [STAFF PHYSICIAN] - 1 Week Activity/Diet/Wound Care/Special Instructions: Do not drive until seen by Dr. Sesay Patient may shower after 48 hours We are bra at all times Discharge Disposition: HOME SELF-CARE
[2019-06-13 13:35] VITALS: TEMP 97
--- NOTE | 2019-06-13 14:41 | USB ---
EXAMINATION TYPE: US breast localization RT, MG pre op needle loc RT, MG surgical specimen RT DATE OF EXAM: 06/13/2019 COMPARISON: MRI of the breast dated 12/30/2018 CLINICAL HISTORY: R92.8 ABNORMAL MAMMOGRAM. Personal history of known right breast cancer. TECHNIQUE/PROCEDURE: The procedure of ultrasound guided needle localization of the right breast was explained to the patient. Benefits, alternatives, and risks were discussed. An informed consent was then obtained. Preprocedural timeout was performed. Site A: The patient was placed in supine positioning for imaging and for the procedure. The overlying skin was prepped and draped in usual sterile fashion. 10 cc of 1% lidocaine was used as anesthetic into the skin and subcutaneous tissue up the mass at the 1:00 position in the right breast at zone A. Under ultrasound guidance from a medial approach, 5 cm needle was passed through the mass and localization wire was placed through the coaxial needle. The coaxial needle was withdrawn and postprocedural mammograms demonstrate appropriate placement of the wire. On postprocedural spot CC and asymmetry was seen just anterior and lateral to the first one year and second site needle localization was discussed with the patient and performed. Site B: The shortest pathway for procedure was chosen. Shortest pathway was CC from above approach. The overlying skin was prepped and draped in usual sterile fashion. Lidocaine buffered with bicarbonate was used as anesthetic into the skin and subcutaneous tissue up to the level of area of concern. A 7 cm needle was used. It was placed via a CC from above approach under mammographic guidance. Subsequent 90 degrees mammogram show the needle to be in satisfactory position relative to the targeted area. At this point, wire was placed and the needle was withdrawn. The wire was fixed to patient's skin. Images were marked for surgeon. Images are also discussed with the surgeon. The patient tolerated the procedure well without any immediate complication. The patient was kept in the radiology department for short stay after the procedure and then taken to surgery for surgical excision. Targeted biopsy marker in regards to site A and 2 wires are identified in specimen mammogram. The patient was kept in hospital for short stay after the procedure and then discharged home in stable condition. IMPRESSION: Successful, uncomplicated needle localization with wire placement and surgical excision of biopsy-proven right breast carcinoma and asymmetry, full pathology results to follow. Pathology Results: Malignant A. SENTINEL LYMPH NODE #1, BIOPSY: One lymph node negative for viable metastatic adenocarcinoma, positive for sinus histiocytosis with fibrosis. (Node examined by H+E as well as appropriately controlled Cytokeratin 7 and USAMA stained sections). AFB and GMS stained sections are negative for acid fast or fungal organisms. B. SENTINEL LYMPH NODE #2, BIOPSY: Five lymph nodes showing centrally necrotic epithelioid granulomata consistent with treated metastatic tumor as demonstrated on H+E as well as appropriately controlled Cytokeratin 7 and USAMA stained sections. AFB and GMS stained sections are negative for acid fast or fungal organisms. C. AXILLARY CONTENTS, DISSECTION: One lymph node - negative for viable metastatic adenocarcinoma on H+E stains. Positive for an epithelioid granuloma with necrotic debries consistent with treated metastatic tumor. AFB and GMS stained sections are negative for acid fast or fungal organisms. See note. D. SKIN OF RIGHT BREAST, EXCISION: Benign skin and dermis. E. RIGHT BREAST TISSUE, LUMPECTOMY: Moderately differentiated, Grade 2, infiltrating ductal carcinoma focally contacting the blue inked anterior margin of resection and extending to within 0.9 mm of the yellow inked medial margin. Tumor involves every section of breast tissue examined. Focal duct carcinoma in situ and intraductal mineralization are identified. See Surgical Pathology Cancer Case Summary. Recommendation Appropriate oncologic management. MTDD
[2019-06-13] MEDS ORDERED: HYDROcodone/APAP 5-325MG 1 EACH TAB PO ONE (15:00)
[2019-06-13 15:06] VITALS: BP 130/88; PULSE 73
== END 2019-06-13 15:46 | disposition home or self-care (01) ==
LOC: OR 07:30
PROVIDERS: ATTEND Surgery
DX: D05.11 Intraductal carcinoma in situ of right breast (principal); Z92.21 Personal history of antineoplastic chemotherapy; I10 Essential (primary) hypertension; F31.9 Bipolar disorder, unspecified; F32.9 Major depressive disorder, single episode, unspecified; F43.10 Post-traumatic stress disorder, unspecified; Z87.891 Personal history of nicotine dependence; Z80.3 Family history of malignant neoplasm of breast; Z88.8 Allergy status to other drugs, medicaments and biological substances; F41.9 Anxiety disorder, unspecified; T74.31XA Adult psychological abuse, confirmed, initial encounter; Z79.899 Other long term (current) drug therapy
CPT/HCPCS: 38525; 19316; 88305; 88312; 88342; 88307; 88341; 76098; 19281; 19285; 38792; A9520; J2250; J1644; J1100; J2405; J0690; J2001; J3010; J0330; J2704

== ENCOUNTER → 2019-06-23 | Outpatient (CLI) | payer OTHER ==
[2019-06-23 15:25] VITALS: BP 153/94; PULSE 79; RESP 18; TEMP 97.5; BMI 27.8
--- NOTE | 2019-06-23 15:46 | P.PN ---
Progress Note - Text Progress Note Date: 06/23/19 Erin is a 59-year-old white female status post right breast lumpectomy and axillary node removal on 1020 919. Pathology revealed all nodes were negative for viable tumor. The pathology did reveal a approximately 1 mm cauterized area on the anterior margin which was focally involved by tumor. The patient has a known mediastinal/internal mammary for which she is going to receive radiation. The patient does not wish further surgical resection. I discussed that ideally we would go back and reexcised that area however she is going to have radiation to the breast and the internal mammary node as well as to the axilla. Again she understands she may be at increased risk for local recurrence without reexcision however is declining at at the present time. I discussed the case with Dr. Perry who feels that it may be reasonable to proceed with radiation therapy and close surveillance. Physical exam: Lungs: Clear slight decreased breath sounds at the bases Heart: Regular rate and rhythm Incision: Clean and dry Impression/plan 1. Status post neoadjuvant chemotherapy status post lumpectomy and axillary node resection 2. Microscopic focal approximately 1 mm margin anteriorly involved with tumor 3. Patient declines reexcision or mastectomy plus or minus reconstruction at this time 4. Case discussed with radiation oncology she will see them in consultation today 5. Follow-up with medical oncology 6. represent at tumor board 7. follow up here in two weeks Cc: Dr. Catalan
== END | disposition home or self-care (01) ==
LOC: WWCWWP 15:11
PROVIDERS: ATTEND Surgery
DX: Z53.9 Procedure and treatment not carried out, unspecified reason (principal)

== ENCOUNTER → 2019-07-01 | Outpatient (CLI) | payer OTHER ==
--- NOTE | 2019-07-04 14:09 | PE ---
Nuclear medicine PET/CT HISTORY: Breast cancer on the right, subsequent Patient received 11 mCi F-18 FDG intravenously in delayed scanning was performed from the skull base to the mid thighs. Localization and attenuation correction CT scan was performed and exam is correlat ed to prior nuclear medicine PET/CT dated 12/09/2018 Neck and chest: There is no cervical adenopathy. No supraclavicular adenopathy. Port-A-Cath is presen t in the right pectoral region, catheter courses into the right jugular vein terminates in the superi or vena cava. There are fluid collections present within the right axillary region measuring 6.3 x 3. 1 cm, the right breast at the site of lumpectomy, surgical clips are present in the focus measures 4. 1 x 2.8 cm as well as also in the subareolar location less well-defined collection. There is overlyin g skin thickening. Mild hypermetabolic uptake is noted in the superficial right breast likely related to treatment changes. There is no mediastinal, axillary, hilar adenopathy or suspicious uptake. No p leural or pericardial effusion. There is a nodular density in the right upper lobe on axial image #77 measuring 6 mm. No associated uptake. ABDOMEN: Liver shows low attenuation possibly due to hepatic steatosis, liver may be enlarged. No tierney dent liver mass or suspicious hypermetabolic uptake. No adrenal mass or retroperitoneal uptake or jett nopathy. No evident ascites. There is an umbilical hernia containing fat. Osseous structures are within normal limits. No suspicious uptake. Facet arthropathy present at the l ower lumbar spine. IMPRESSION: Indeterminate pulmonary nodule, follow-up recommended. Postprocedural changes including s eromas in the right axillary and breast regions. No suspicious hypermetabolic uptake is suspected.
== END | disposition home or self-care (01) ==
LOC: RADPETMAIN 11:17
PROVIDERS: ATTEND Surgery
DX: M96.843 Postprocedural seroma of a musculoskeletal structure following other procedure (principal); C50.212 Malignant neoplasm of upper-inner quadrant of left female breast
CPT/HCPCS: 78815; A9552

== ENCOUNTER → 2019-07-07 | Outpatient (CLI) | payer OTHER ==
[2019-07-07 11:43] VITALS: BP 134/94; PULSE 92; RESP 18; TEMP 97.6; BMI 27.8
--- NOTE | 2019-07-07 12:00 | P.PN ---
Progress Note - Text Progress Note Date: 07/07/19 Right breast cancer stage IIIB, prior to neoadjuvant chemotherapy Erin is a 59-year-old white female status post right breast lumpectomy and sentinel node biopsy on 1020 919. Pathology revealed negative axillary lymph nodes. It revealed 1 focal involvement of tumor at the anterior inked margin. The case was discussed with pathology who felt that this was an isolated small focal lesion of invasive cancer at a cauterized margin. The case was discussed with medical oncology as well who did not feel that additional resection was necessary. Case was discussed with radiation oncology who are going to treat the patient with radiation therapy and at this time did not feel that reexcision was necessary. Patient herself would prefer not to have reexcision. The patient did have a PET/CT scan performed on PET computed tomography scan there was a 6 mm nodular density in the right upper lobe of the lung on cut #77. The patient is going to follow with pulmonary with respect to this. The patient has no complaints at this time and is here for suture removal. She is going to have radiation therapy starting Christo the skin. She is not receiving chemotherapy at the present time. She is going to have hormonal therapy in the near future. PE: Lungs: mild wheezing at the bases Heart: Regular rate and rhythm Incision: Clean and dry right breast, mild ecchymosis at the 12 o'clock position Impression/Plan: 1. Patient status post neoadjuvant chemotherapy right breast stage IIIB 2. Right breast lumpectomy, focal anterior margin positive after review with medical and radiation oncology and patient's wishes we're going to treat her with radiation and follow this conservatively 3. PET/CT questionable lesion on right upper lobe of the lung recommend pulmonary consultation 4. Hormonal therapy as per medical oncology CC: [facility]
== END ==
LOC: WWCWWP 11:29
PROVIDERS: ATTEND Surgery
DX: Z53.9 Procedure and treatment not carried out, unspecified reason (principal)

== ENCOUNTER → 2019-09-26 | Outpatient (CLI) | payer OTHER ==
--- NOTE | 2019-09-26 14:47 | BD ---
EXAMINATION TYPE: Axial Bone Density DATE OF EXAM: 09/26/2019 COMPARISON: NONE CLINICAL HISTORY: Height: 63.2 IN Weight: 161 LBS FRAX RISK QUESTIONS: History of Fracture in Adulthood: LT FOOT FX AGE 49 RISK FACTORS HISTORY OF: History of Wrist Fracture: YES LT WRIST AGE 5 Active: YES Postmenopausal woman: AGE 54 MEDICATIONS: Additional Medications: VIT D, ARIMIDEX, Additional History: BREAST CANCER WITH CHEMO AND RADIATION EXAM MEASUREMENTS: Bone mineral densitometry was performed using the [employer] System. Bone mineral density as measured about the Lumbar spine is: ----- L1-L4(G/cm2): 1.150 T Score Values are as follows: ----- L2: 0.8 ----- L3: -0.4 ----- L4: -1.1 ----- L1-L4: -0.3 Bone mineral density BASELINE Bone mineral density about the R hip (g/cm2): 0.760 Bone mineral density about the L hip (g/cm2): 0.815 T Score values are as follows: -----R Neck: -2.0 -----L Neck: -1.6 -----R Total: -1.2 -----L Total: -1.1 Bone mineral density BASELINE IMPRESSION: Osteopenia. NOTE: T-SCORE=SD OF THE YOUNG ADULT MEAN.
== END | disposition home or self-care (01) ==
LOC: RADBDWWP 13:29
PROVIDERS: ATTEND Internal Medicine Hematology & Oncology
DX: M85.80 Other specified disorders of bone density and structure, unspecified site (principal); N95.1 Menopausal and female climacteric states; C50.411 Malignant neoplasm of upper-outer quadrant of right female breast
CPT/HCPCS: 77080

== ENCOUNTER → 2019-09-27 | Outpatient (CLI) | payer OTHER ==
--- NOTE | 2019-09-27 15:38 | XR ---
EXAMINATION TYPE: XR chest 2V DATE OF EXAM: 09/27/2019 COMPARISON: 01/12/2019 HISTORY: COPD. History of right-sided breast cancer. TECHNIQUE: Frontal and lateral views of the chest are obtained. FINDINGS: There is no focal air space opacity, pleural effusion, or pneumothorax seen. Eventration of the right hemidiaphragm is noted. The cardiac silhouette size is within normal limits. Moderate de generative change of the spine. Surgical clips are seen within the right breast with right-sided Medi port placement similar to the prior. IMPRESSION: No acute cardiopulmonary process.
== END | disposition home or self-care (01) ==
LOC: RADXRMAIN 15:14
PROVIDERS: ATTEND Family Medicine
DX: J44.9 Chronic obstructive pulmonary disease, unspecified (principal)
CPT/HCPCS: 71046

== ENCOUNTER → 2019-10-06 | Outpatient (CLI) | payer OTHER ==
--- NOTE | 2019-10-06 15:58 | US ---
EXAMINATION TYPE: US liver DATE OF EXAM: 10/06/2019 COMPARISON: PET/CT 07/01/2019 CLINICAL HISTORY: K76.0 HEPATIC STEATOSIS. Fatty liver. EXAM MEASUREMENTS: Liver Length: 15.2 cm Gallbladder Wall: .2 cm CBD: .6 cm Right Kidney: 10.0 x 3.5 x 4.1 cm Pancreas: wnl Liver: hypoechoioc area michael hepatisis3.2 x 2.7 x 3.5 cm. Hypoechoic area right lobe 5.0 x 4.2 x 5. 1 cm. Gallbladder: wnl Evidence for sonographic Greco's sign: CBD: wnl Right Kidney: wnl IMPRESSION: 1. Ill-defined hypoechoic area right lobe liver. Additional workup with contrast CT is recommended. M etastatic disease is not excluded at this time.
== END | disposition home or self-care (01) ==
LOC: RADUSWWP 09:44
PROVIDERS: ATTEND Family Medicine
DX: K76.0 Fatty (change of) liver, not elsewhere classified (principal)
CPT/HCPCS: 76705

== ENCOUNTER → 2019-10-13 | Outpatient (CLI) | payer OTHER ==
[2019-10-13 14:01] VITALS: BP 123/84; PULSE 94; RESP 18; TEMP 97.8
--- NOTE | 2019-10-13 14:26 | P.PN ---
Subjective Progress Note Date: 10/13/19 Principal diagnosis: stage IIIB right breast cancer surveillance Erin is a 59-year-old white female status post right breast lumpectomy and sentinel node biopsy on [id number]. Pathology revealed negative axillary lymph nodes. It revealed 1 area of focal involvement of tumor at the anterior inked margin. The case was discussed with pathology who felt that this was an isolated small focal lesion of invasive cancer at a cauterized margin. The case was discussed with medical oncology as well who did not feel that additional resection was necessary. Case was discussed with radiation oncology who are going to treat the patient with radiation therapy and at this time did not feel that reexcision was necessary. Patient herself would prefer not to have reexcision. The patient received neoadjuvant chemotherapy. She is presently on hormonal therapy, Arimidex. Erin completed a course of radiation therapy, in August 2018. She received a dose of 5000 cGy. She was recently seen by primary care doctor who was told that she had a 1 cm spot in her liver. She was recommended to undergo a computed tomography scan however she was scheduled for a PET scan in November and declined the computed tomography scan at this time. The patient had an ultrasound of the liver pe rformed on . This revealed an ill-defined hypoechoic area in the right lobe of the liver. Additional workup with contrast CT was recommended to rule out metastatic disease. A chest x-ray was done and which showed no acute pole woman cardiopulmonary process. The patient had a PET scan done on [id number]. On that study no lesion was noted in the liver although questionable pulmonary nodule was identified. The patient did have a PET/CT scan performed on PET computed tomography scan there was a 6 mm nodular density in the right upper lobe of the lung on cut #77. The patient is going to follow with pulmonary with respect to this. The patient has no complaints at this time and is here for suture removal. She is not receiving chemotherapy at the present time. She is going to have hormonal therapy in the near future. The patient physically states she feels well. She has no lumps masses or nodules in her breast. She does not complain of any nipple discharge or skin changes. Family history: Maternal grandmother: Breast cancer Past surgical history: 1. Dislocated elbow 2., Fractured right arm 3. Question ankle 4. D&C 5. Right breast lumpectomy sentinel node biopsy Medical history: 1. Hypertension 2. Left M1 extend all the way Social history: Smoke: One pack per day for 30 years stopped November 2018 Alcohol: Negative Drugs: Negative Review of systems: HEENT: Negative Lungs: Negative/nodule in the lung is being followed/masses in the right lobe recent chest x-ray was negative Heart: Negative GI: Questionable lesion in the liver : Negative Musculoskeletal: Dislocated elbow/arthritis Neurologic: Negative Endocrine: Negative Hematologic: Negative Psychiatric: Bipolar, anxiety/depression ALLERGIES: Seasonal ALLERGIES Objective - Vital Signs Vital signs: Vital Signs Temp 97.8 F 10/13/19 13:59 Pulse 94 10/13/19 13:59 Resp 18 10/13/19 13:59 BP 123/84 10/13/19 13:59 Pulse Ox 96 10/13/19 13:59 Intake & Output 10/12/19 10/13/19 10/13/19 18:59 06:59 18:59 Weight 75.296 kg - Exam BMI 28.5 - Constitutional General appearance: Present: average body habitus - EENT Eyes: Present: EOMI ENT: Present: hearing grossly normal - Neck Neck: Present: normal ROM - Respiratory Respiratory: bilateral: CTA - Cardiovascular Rhythm: regular Heart sounds: normal: S1, S2 - Gastrointestinal Gastrointestinal Comment(s): no guarding or rebound General gastrointestinal: Present: normal bowel sounds, soft - Integumentary Integumentary: Present: normal turgor - Musculoskeletal Musculoskeletal: Present: gait normal - Psychiatric Psychiatric: Present: A&O x's 3, appropriate affect, intact judgment & insight - Additional findings Additional findings: Breast examination: Inspection: Well-healed scar right breast from prior surgery nipple areolar complex higher than on the contralateral breast Palpation: Right breast: Multiple positional exam well-healed scar right breast no dominant masses or nodules of concern no evidence of any recurrence Right axilla: No adenopathy of concern Left breast: Multiple positional exam no dominant mass or nodule is of concern Left axilla: No adenopathy of concern Assessment and Plan Assessment: Impression: 1. Patient status post stage III the right breast cancer status post neoadjuvant chemotherapy/lumpectomy sentinel node biopsy/radiation therapy 2. Recent ultrasound of the liver questionable lesion 3. CA-15-3 27.5 upper limit of normal 25 this was done on 4. Liver function studies within normal limits 5. Patient on arimidex Plan: 1. Further imaging of the liver secondary to ultrasound findings of cyst questionable suspicious lesion in the right lobe of the liver repeating PET scan at this time rather him waiting until November 2. Continue to monitor CA-15-3 level as per medical oncology 3. No evidence of local recurrence of cancer in the right breast 4. Follow-up here after PET scan is performed 5. Case discussed with Dr. Perry from radiation oncology patient will continue to follow with him as well Cc: Dr. Blankenship encounter 40 minutes, > 50% of time spent in planning and counselling Time with Patient: Greater than 30
--- NOTE | 2019-10-18 09:58 | P.PN ---
Progress Note - Text Progress Note Date: 10/18/19 Patient underwent an MRI of the liver which reveals a lesion which is approximately 4.9 cm in size. The area was seen on the PET scan in June but did not have the typical appearance of metastatic disease. There is concern that this may represent an atypical hemangioma secondary to peripheral nodular enhancement with progressive centripetal filling. This was reviewed with radiology and it was recommended that she undergo a nuclear medicine scan with sulfur colloid. I discussed this with Dr. Catalan and he concurs. This has been ordered. I've also called the patient and discussed this with the patient. I will see the patient after this has been done.
== END ==
LOC: WWCWWP 13:40
PROVIDERS: ATTEND Surgery
DX: Z53.9 Procedure and treatment not carried out, unspecified reason (principal)

== ENCOUNTER → 2019-10-16 | Outpatient (CLI) | payer OTHER ==
--- NOTE | 2019-10-16 15:59 | MR ---
EXAMINATION TYPE: MR liver wo/w con DATE OF EXAM: 10/16/2019 COMPARISON: Liver ultrasound October 06, 2019. PET CT July 01, 2019 and older study December 09 19 HISTORY: Breast Cancer / Abnormal US, Liver mets CONTRAST: Standard multiplanar, multisequence MRI departmental protocol utilizing 7.5 mL intravenous Gadavist g adolinium contrast. FINDINGS: Liver: Liver is overall normal in size. There is diffuse signal dropout consistent with mild diffuse fatty infiltration. Corresponding to ultrasound less well seen on prior PET CTs there is a lobulated mass in the right hepatic lobe posterior segment measuring 4.5 cm transversely by 3.5 cm AP diameter by 4.9 cm craniocaudal diameter axial image 84 series 701 and coronal image 24 of T1 hypointensity an d T2 hyperintensity relative to remainder of liver with some central area of more prominent T2 hyperi ntensity or fluid. Dynamic postcontrast images show peripheral nodular enhancement with progressive c entripetal filling. Findings consistent with a atypical hemangioma. The cystic areas do not fill with contrast. No intrahepatic or extrahepatic biliary dilatation. No additional concerning solid or cyst ic intrahepatic lesions. Other: Lung bases are grossly clear. Spleen, pancreas, both adrenal glands are normal in size. No con cerning renal mass or hydronephrosis. Slightly wandering cecum centrally. No suspicious small or larg e bowel dilatation. No abdominal ascites or suspicious adenopathy. Visualized osseous structures are intact. IMPRESSION: Confirmation of lesion within liver measuring up to 4.9 cm in size. Lesion is however aretha rly well-defined with some lobulated peripheral margin. Atypical hemangioma is favored due to the per ipheral nodular enhancement with progressive centripetal filling. Lesion however is noted atypical as there is internal more T2 hyperintense or cystic change identified and the lesion is fairly hypoecho ic on ultrasound. The lesion in retrospect has been present on prior PET CTs though less well seen. N o abnormal hypermetabolic uptake is identified. I would recommend follow-up MRI in 6-12 months time t o sure stability.
== END | disposition home or self-care (01) ==
LOC: RADMRIMAIN 14:02
PROVIDERS: ATTEND Internal Medicine Hematology & Oncology
DX: K76.9 Liver disease, unspecified (principal); C50.411 Malignant neoplasm of upper-outer quadrant of right female breast
CPT/HCPCS: 74183; A9585

== ENCOUNTER → 2019-10-26 | Outpatient (CLI) | payer OTHER ==
--- NOTE | 2019-10-26 14:10 | NM ---
EXAMINATION TYPE: NM liver with vasc flow DATE OF EXAM: 10/26/2019 COMPARISON: NONE HISTORY: Liver lesion Following administration of 3ml PYP 27 mCi Tc 99m Sodium Pertechnete tagged RBCs. Immediate images po st injection FINDINGS: There is focal radiotracer accumulation in the superior right hepatic lobe at the same location of th e hepatic lesion seen on the prior MRI of 10/16/2019. Physiologic excretion is seen. The kidneys and ph ysiologic uptake in the lungs and heart as well as within the spleen. IMPRESSION: Findings confirming hepatic hemangioma with tagged RBCs accumulating in the hepatic lesio n.
--- NOTE | 2019-11-02 10:51 | P.PN ---
Progress Note - Text Progress Note Date: 11/02/19 I have called Erin today with results of her take red blood cell scan for her liver. This reveals a hemangioma. I have recommended that she follow with Dr. Blankenship with respect to this and discussed that he may recommend a GI consultation. At the present time she is not going to come in for her appointment scheduled for 11-03-19. Reason for canceling this appointment is secondary to the patel virus concerns. She is being scheduled to follow-up on January 10.
== END | disposition home or self-care (01) ==
LOC: RADNMMAIN 08:47
PROVIDERS: ATTEND Surgery
DX: D18.03 Hemangioma of intra-abdominal structures (principal)
CPT/HCPCS: 78202; A9560

== ENCOUNTER → 2019-11-24 | Outpatient (CLI) | payer OTHER ==
--- NOTE | 2019-11-27 12:16 | PE ---
Nuclear medicine PET/CT HISTORY: Right breast carcinoma, subsequent Patient received 13 mCi F-18 FDG intravenously in delayed scanning was performed from the skull base to the mid thighs. Localization and attenuation correction CT scan was performed. Correlation to prior nuclear medicine PET/CT 07/01/2019, 12/09/2018 neck and CHEST: There is a focus at the right costophrenic angle of hypermetabolic activity, SUV is o nly 2.3 and there is no associated mass, some mild inflammatory changes are suspected. No pleural or pericardial effusion. Abnormal skin thickening again noted within the right breast, there is associat ed hypermetabolic uptake along the skin surface and within the abnormal soft tissue in the right pee[address] st. The appearance of the seroma has changed compared to prior exam, surgical clips are present in th e right breast At the level of the aorticopulmonary window there is some mild uptake, SUV is only 2.6 , questionable clinical significance. Coronary artery calcifications are present. No axillary or supr aclavicular adenopathy, no evident cervical adenopathy. There is a right sided chest port, catheter l ooped is coursing via the internal jugular vein approach into the superior vena cava. Right upper lob e pulmonary nodule subcentimeter size shows a similar appearance on axial image #79, right lower lobe pulmonary nodule on axial image 84 also stable and subcentimeter in size. ABDOMEN: 1 there is a focus of low-attenuation within the posterior right lobe of the liver towards t he dome showing similar appearance to prior exam. Low-attenuation within the liver suggests hepatic s teatosis. There is no retroperitoneal adenopathy. No ascites. Small anterior abdominal wall hernia co ntaining fat is again noted in the umbilical region. Osseous structures show no associated hypermetabolic uptake. Facet arthropathy changes are noted in t he lower lumbar spine. IMPRESSION: There is new mild uptake seen at the right costophrenic angle level, aorticopulmonary win franki node of questionable clinical significance. Uptake within the right breast is again seen and may be posttreatment related. Indeterminate abnormality within the liver shows no associated uptake. Stab le subcentimeter lung nodules.
== END | disposition home or self-care (01) ==
LOC: RADPETMAIN 13:26
PROVIDERS: ATTEND Surgery
DX: Q21.4 Aortopulmonary septal defect (principal); R91.8 Other nonspecific abnormal finding of lung field; C50.212 Malignant neoplasm of upper-inner quadrant of left female breast
CPT/HCPCS: 78815; A9552

== ENCOUNTER → 2020-01-10 | Outpatient (CLI) | payer OTHER ==
--- NOTE | 2020-01-11 08:01 | MM ---
Reason for exam: additional evaluation requested from prior study. Last mammogram was performed 1 year ago. History: Patient is postmenopausal and has history of breast cancer at age 58. Family history of breast cancer in maternal grandmother at age 40. Malignant MG pre op needle loc RT of the right breast, June 13, 2019. Malignant US breast localization RT of the right breast, June 13, 2019. Lumpectomy of the right breast, June 13, 2019. Benign US biopsy breast VAD LT of the left breast, January 20, 2019. Benign US biopsy breast add'l VAD LT of the left breast, January 20, 2019. Malignant US breast needle core addl RT of the right breast, November 23, 2018. Malignant US biopsy breast VAD RT of the right breast, November 23, 2018. Took other hormone for 6 months. Physical Findings: Nurse did not find any significant physical abnormalities on exam. MG Diagnostic Mammo w CAD ROSA Bilateral CC and MLO view(s) were taken. Spot compression CC view(s) were taken of the left breast. Prior study comparison: January 20, 2019, left breast MG diagnostic mammo LT wo CAD. November 23, 2018, right breast MG diagnostic mammo RT wo CAD. October 27, 2018, bilateral MG screening mammo w CAD. The breast tissue is heterogeneously dense. This may lower the sensitivity of mammography. There is skin thickening architectural distortion in the right breast consistent with known lumpectomy changes. There are benign appearing round calcifications in the left breast. Previous mammotome biopsy in the left breast x 2. There is no discrete abnormality. Right axillary mediport changes. These results were verbally communicated with the patient and result sheet given to the patient on 01/10/20. ASSESSMENT: Benign, BI-RAD 2 RECOMMENDATION: Follow-up diagnostic mammogram of both breasts in 1 year.
== END | disposition home or self-care (01) ==
LOC: RADMAMWWP 09:38
PROVIDERS: ATTEND Radiology Radiation Oncology
DX: C50.211 Malignant neoplasm of upper-inner quadrant of right female breast (principal); C77.3 Secondary and unspecified malignant neoplasm of axilla and upper limb lymph nodes; Z92.21 Personal history of antineoplastic chemotherapy
CPT/HCPCS: 77066

== ENCOUNTER → 2020-01-11 | Outpatient (CLI) | payer OTHER ==
[2020-01-11 09:22] VITALS: BP 155/88; PULSE 70; RESP 16; TEMP 98.1
--- NOTE | 2020-01-11 10:12 | P.PN ---
Subjective Progress Note Date: 01/11/20 Principal diagnosis: right breast cancer/ stage IIIB Erin is a 59-year-old white female diagnosed with stage IIIB right breast cancer diagnosed in November 2018. She underwent neoadjuvant chemotherapy. The pathology revealed grade 2 invasive ductal carcinoma, ER/CA 100%/10%, HER-2 +1, (negative) and grade 3 invasive ductal carcinoma ER/CA 100%/90%, HER-2 0 (negative). Pre-treatment she had a stage IIIB T3 CM IIIa M0 G2 tumor, posttreatment this was a 1 the T3 and 0 M0 G3 tumor. Treatment was from January to April 2019 She received Adriamycin and Cytoxan and Taxol for 4 cycles She had a right breast lumpectomy No dissection on [id number] Patient was from 07/18/2019 to . She received radiation therapy a total of 5000 cGy to the right breast and 1000 cGy to the supraclavicular nodes She is presently taking anastrozole The patient has had a bilateral mammogram performed on 01-10-20; this was reviewed with radiology; there were noted to be some skin changes from lumpectomy changes in the right breast but otherwise no lesions of concern in either breast. It was felt that this was benign BIRADS 2 and repeat bilateral mammogram in 1 year was appropriate. Additionally she had a PET scan performed on . This revealed mild uptake seen at the right costophrenic angle, and aortopulmonary window node of questionable clinical significance. Additionally a indeterminate abnormality was seen within the liver. She had a red blood cell scan subsequently performed which revealed a hemangioma in the liver. She has no complaints related to her breast at this time. She drinks caffeine occasionally. She does not smoke. She is not exposed to secondhand smoke. She states chocolate on a regular basis. She has not taken any estrogen or estrogen products, she is taking anastrozole. Family history: 1. maternal grandmother: breast cancer Hormonal History: menarche:9 , breast fed: yes, age at first : 27 menopause: 51 BCP: none hormones: none Surgical history: 1. Right breast lumpectomy and axillary node dissection 2. ankle surgery 3. dislocated elbow 4. D&C 5. Hemorrhoids Medical history: 1. bipolar/ is not taking any medication, counseling Social History: smoke: none alcohol: none drugs: none Review of systems: HEENT: blurred vision lungs: SOB improved heart: none GI: none : none, postmenopausal Musculoskeletal: joint pain arthritis Hematologic: Negative Psychiatric: Bipolar/treated with counseling Allergies: seasonal Objective - Vital Signs Vital signs: Vital Signs Temp 98.1 F 01/11/20 08:57 Pulse 70 01/11/20 08:57 Resp 16 01/11/20 08:57 BP 155/88 01/11/20 08:57 Pulse Ox 97 01/11/20 08:57 Intake & Output 01/10/20 01/11/20 01/11/20 18:59 06:59 18:59 Weight 76.204 kg - Exam BMI 28.8 - Constitutional General appearance: Present: average body habitus - EENT Eyes: Present: EOMI ENT: Present: hearing grossly normal - Neck Neck: Present: normal ROM - Respiratory Respiratory: bilateral: CTA - Cardiovascular Rhythm: regular Heart sounds: normal: S1, S2 - Gastrointestinal General gastrointestinal: Present: normal bowel sounds, soft - Integumentary Integumentary: Present: normal turgor - Musculoskeletal Musculoskeletal: Present: gait normal - Psychiatric Psychiatric: Present: A&O x's 3, appropriate affect - Additional findings Additional findings: breast exam: breast right smaller than left BRA: 38C inspection: Postop changes right breast well-healed scar, ptosis grade 1/2, left breast ptosis grade 3 Palpation: Right breast: Postop and post radiation changes noted, multiple positional exam no dominant masses or nodules of concern Right axilla: Well-healed scar no adenopathy of concern Left breast: Multiple positional exam no dominant masses or nodules of concern Left axilla: No adenopathy of concern Assessment and Plan Assessment: Impression: 1. Stage IIIB pre-neoadjuvant right breast cancer/patient status post neoadjuvant chemotherapy Cytoxan/Adriamycin/Taxol 2. Patient status post radiation therapy 3. Patient presently on anastrozole 4. Recent bilateral mammogram BIRADS 2 repeat mammogram in 1 year PET scan questionable liver lesion believed to be a hemangioma/questionable anterior right costophrenic angle nodularity this has been reviewed with Dr. Jules from radiology and she feels comfortable that this can be repeated in 6 months 5. Concern is the fact that on the original pathology of the anterior margin was noted to be positive for tumor however this was right up under the skin and additional margin was not recommended to be taken at that time the patient is aware of this and was aware at the time and did not wish to have a mastectomy at that time Plan: 1. The present case at tumor board 2. Follow up here in 3-4 months time 3. Repeat PET scan in 6 months CC: Dr. Blankenship encounter 45 minutes, > 50% of time in planning and counselling Time with Patient: Greater than 30
== END | disposition home or self-care (01) ==
LOC: WWCWWP 08:55
PROVIDERS: ATTEND Surgery
DX: Z53.9 Procedure and treatment not carried out, unspecified reason (principal)

== ENCOUNTER → 2020-04-18 | Outpatient (CLI) | payer OTHER ==
[2020-04-18 15:23] VITALS: BP 146/88; PULSE 68; RESP 18; TEMP 97.9
--- NOTE | 2020-04-18 15:52 | P.PN ---
Subjective Progress Note Date: 04/18/20 Principal diagnosis: stage IIIB [id number]-right breast cancer Erin is a 59 year old white female who presented with a stage IIIB right breast cancer in November 2018. She had neoadjuvant chemotherapy from January to April 2019 receiving Adriamycin Cytoxan and Taxol. She had a right breast lumpectomy and node dissection in [id number]. She then had radiation therapy a total of 5000 cGy to the right breast in the thousand centigrays to the supraclavicular nodes. She is presently taking anastrozole The patient has no changes which are new in her breast for which she is concerned. The patient had her last bilateral mammogram on 520 720 there were noted to be some skin changes from the lumpectomy but otherwise no lesions of concern, it was felt this was a benign BIRADS 2 and repeat bilateral mammogram in 1 year was appropriate. [place] [id number]. This revealed mild uptake at the right costophrenic angle and aortopulmonary window of questionable clinical significance. Additionally an indeterminate abnormality was seen within the liver she had a red blood cell scan performed which revealed a hemangioma. Medical history: 1. Bipolar is not taking any medications at the present time and doing well with counseling 2. Hypothyroid recently diagnosed and started on Synthroid Surgical history: 1. Right breast lumpectomy No dissection 2. Ankle surgery 3. Dislocated elbow 4. D&C 5. Hemorrhoids Social history: Smoke: Negative Alcohol: Negative Drugs: Negative Review of systems: HEENT: Blurred vision Lungs: Shortness of breath Heart: Negative GI: Negative : Postmenopausal Musculoskeletal: Arthritis Hematologic: Negative Psychiatric: Bipolar ALLERGIES: Seasonal Objective - Vital Signs Vital signs: Vital Signs Temp 97.9 F 04/18/20 15:20 Pulse 68 04/18/20 15:20 Resp 18 04/18/20 15:20 BP 146/88 04/18/20 15:20 Pulse Ox 97 04/18/20 15:20 Intake & Output 04/17/20 04/18/20 04/18/20 18:59 06:59 18:59 Weight 75.296 kg - Exam BMI 28.5 - Constitutional General appearance: Present: average body habitus - EENT Eyes: Present: EOMI ENT: Present: hearing grossly normal - Neck Neck: Present: normal ROM - Respiratory Respiratory: bilateral: CTA - Cardiovascular Rhythm: regular Heart sounds: normal: S1, S2 - Gastrointestinal General gastrointestinal: Present: normal bowel sounds, soft - Integumentary Integumentary: Present: normal turgor - Musculoskeletal Musculoskeletal: Present: gait normal - Psychiatric Psychiatric: Present: A&O x's 3, appropriate affect, intact judgment & insight - Additional findings Additional findings: breast exam: BRA: 38C inspection: Skin changes right breast related to radiation therapy no evidence of infection Palpation: Right breast: Well-healed scar from prior lumpectomy, skin changes related to radiation therapy, multiple positional exam no dominant masses or nodules of concern until a: No adenopathy of concern Left breast: Multiple positional exam no dominant masses or nodules of concern, fibrocystic changes Left axilla: No adenopathy of concern Assessment and Plan Assessment: Impression: Patient status post right breast lumpectomy axillary node dissection for stage IIIB right breast cancer, no evidence of recurrent disease at this time Patient is on anastrozole will continue this she is experiencing some hair loss and would request that she talk to medical oncology to see if this may be a side effect Patient recently diagnosed with hypothyroidism on Synthroid Plan: 1. Continue present therapy 2. Follow-up in 6 months with bilateral mammogram 3. Continue Synthroid for hypothyroidism CC: DR. Blankenship encounter 20 minutes, > 50% of time in planning and counselling
== END | disposition home or self-care (01) ==
LOC: WWCWWP 14:33
PROVIDERS: ATTEND Surgery
DX: Z53.9 Procedure and treatment not carried out, unspecified reason (principal)

== ENCOUNTER → 2020-07-05 | Outpatient (CLI) | payer OTHER ==
--- NOTE | 2020-07-09 11:40 | PE ---
EXAMINATION TYPE: PET CT fusion skull to thigh DATE OF EXAM: 07/05/2020 COMPARISON: Prior PET/CT November 24, 2019 and older studies HISTORY: Right-sided breast cancer diagnosed November 2018 with history of surgery June 2019 and c hemotherapy along with radiation treatment. TECHNIQUE: Following the intravenous administration of 12.63 mCi of F-18 FDG, whole body images are performed from the skull base to the midthigh. Images are reviewed on the computer in the coronal, a xial, and sagittal planes. Reconstructed rotating images are created on independent workstation and reviewed on the computer. A noncontrast CT is performed in conjunction with the PET scan. SCAN: Subsequent Scan FINDINGS: SKULL BASE AND NECK: No new areas of suspicious hypermetabolic uptake. CHEST, MEDIASTINUM, AND HILAR REGION: Extensive posttreatment changes to the right breast with abnorm al skin thickening remains present. Interval improvement in degree of subcutaneous edema and skin thi ckening with mild diffuse hypermetabolic uptake in the skin thickening remaining present. No new area s of suspicious hypermetabolic uptake. Surgical changes upper medial right breast redemonstrated. No new axillary adenopathy. No new areas of suspicious hypermetabolic uptake in the thorax including opposite left breast. Interv al resolution of mild hypermetabolic uptake at the AP window. Stable 5 mm ametabolic right mid lung n odule axial image 76 and 4 to 5 mm superior right lower lobe ametabolic nodule axial image 82. ABDOMEN AND PELVIS: Normal excretion is present. No new areas of abnormal hypermetabolic uptake. OSSEOUS STRUCTURES: No new areas of abnormal hypermetabolic uptake. OTHER CT: Stable right internal jugular Mediport catheter terminating in proximal SVC. Marked fatty infiltration of liver redemonstrated. Fat-containing umbilical hernia again seen. IMPRESSION: No new areas of suspicious hypermetabolic uptake to suggest active neoplastic recurrence.
== END | disposition home or self-care (01) ==
LOC: RADPETMAIN 13:05
PROVIDERS: ATTEND Internal Medicine Hematology & Oncology
DX: C50.411 Malignant neoplasm of upper-outer quadrant of right female breast (principal); Z92.21 Personal history of antineoplastic chemotherapy
CPT/HCPCS: 78815; A9552

== ENCOUNTER → 2020-12-18 | Outpatient (CLI) | payer OTHER ==
[2020-12-19 10:35] LABS: T4, Free (Free Thyroxine) 1.4 ng/dL (0.80-1.80)
== END | disposition home or self-care (01) ==
LOC: LABWHC1 15:36
PROVIDERS: ATTEND Internal Medicine
DX: E03.9 Hypothyroidism, unspecified (principal)
CPT/HCPCS: 36415; 84439; 84443

== ENCOUNTER → 2021-01-14 | Outpatient (CLI) | payer OTHER ==
--- NOTE | 2021-01-15 08:35 | MM ---
Reason for exam: additional evaluation requested from prior study. Last mammogram was performed 1 year ago. History: Patient is postmenopausal and has history of breast cancer at age 58. Family history of breast cancer in maternal grandmother at age 40. Malignant MG pre op needle loc RT of the right breast, June 13, 2019. Malignant US breast localization RT of the right breast, June 13, 2019. Lumpectomy of the right breast, June 13, 2019. Benign US biopsy breast VAD LT of the left breast, January 20, 2019. Benign US biopsy breast add'l VAD LT of the left breast, January 20, 2019. Malignant US breast needle core addl RT of the right breast, November 23, 2018. Malignant US biopsy breast VAD RT of the right breast, November 23, 2018. Taking antineoplastic beginning at age 58. Physical Findings: Nurse did not find any significant physical abnormalities on exam. MG Diagnostic Mammo w CAD ROSA Bilateral CC, MLO, and LM view(s) were taken. Spot compression CC view(s) were taken of the right breast. Prior study comparison: January 10, 2020, bilateral MG diagnostic mammo w CAD ROSA. January 20, 2019, left breast MG diagnostic mammo LT wo CAD. The breast tissue is heterogeneously dense. This may lower the sensitivity of mammography. Right post lumpectomy and radiation stable. Right mediport catheter seen. Left benign biopsy markers x 2. Right breast probably benign, 6 month follow up. These results were verbally communicated with the patient and result sheet given to the patient on 01/14/21. ASSESSMENT: Probably benign, BI-RAD 3 RECOMMENDATION: Follow-up diagnostic mammogram of the right breast in 6 months.
== END | disposition home or self-care (01) ==
LOC: RADMAMWWP 13:39
PROVIDERS: ATTEND Surgery
DX: Z85.3 Personal history of malignant neoplasm of breast (principal); Z80.3 Family history of malignant neoplasm of breast; Z78.0 Asymptomatic menopausal state
CPT/HCPCS: 77066

== ENCOUNTER → 2021-01-17 | Outpatient (CLI) | payer OTHER ==
[2021-01-17 12:55] VITALS: BP 153/83; PULSE 64; RESP 18; TEMP 98.1
--- NOTE | 2021-01-17 13:27 | P.PN ---
Subjective Progress Note Date: 01/17/21 Principal diagnosis: stage IIIB right breast cancer Erin is a 59 year old white female who presented with a stage IIIB right breast cancer in November 2018. She had neoadjuvant chemotherapy from January to April 2019 receiving Adriamycin Cytoxan and Taxol. She had a right breast lumpectomy and node dissection on [id number]. She then had radiation therapy a total of 5000 cGy to the right breast in the thousand centigrays to the supraclavicular nodes. She is presently taking anastrozole The patient has no changes which are new in her breast for which she is concerned. The patient had her last bilateral mammogram on 01-14-21 noted to be postoperative and radiation changes in the right breast no lesions of concern were identified in the left breast and follow-up right breast mammogram in 6 months time was recommended. She had a PET scan performed on . This revealed mild uptake at the right costophrenic angle and aortopulmonary window of questionable clinical significance. Additionally an indeterminate abnormality was seen within the liver she had a red blood cell scan performed which revealed a hemangioma. PET scan from was performed which revealed no new areas of suspicious hypermetabolic uptake to suggest active neoplastic recurrence. Since she was last seen she also had an episode of being a parathyroid her Synthroid levels have been adjusted and she is doing well at this time. Laboratory studies most recently from [id number] reveal a CA 15-[address] Catalan's note from 01-07-21 reviewed. Medical history: 1. Bipolar is not taking any medications at the present time and doing well with counseling 2. Hypothyroid recently diagnosed and started on Synthroid Surgical history: 1. Right breast lumpectomy No dissection 2. Ankle surgery 3. Dislocated elbow 4. D&C 5. Hemorrhoids Social history: Smoke: Negative Alcohol: Negative Drugs: Negative Review of systems: HEENT: Blurred vision Lungs: Shortness of breath Heart: Negative GI: Negative : Postmenopausal Musculoskeletal: Arthritis Hematologic: Negative Psychiatric: Bipolar ALLERGIES: Seasonal Objective - Vital Signs Vital signs: Vital Signs Temp 98.1 F 01/17/21 12:53 Pulse 64 01/17/21 12:53 Resp 18 01/17/21 12:53 BP 153/83 01/17/21 12:53 Pulse Ox 95 01/17/21 12:53 Intake & Output 01/16/21 01/17/21 01/17/21 18:59 06:59 18:59 Weight 81.647 kg - Exam BMI 30.9 - Constitutional General appearance: Present: average body habitus - EENT Eyes: Present: EOMI ENT: Present: hearing grossly normal - Neck Neck: Present: normal ROM - Respiratory Respiratory: bilateral: CTA - Cardiovascular Rhythm: regular Heart sounds: normal: S1, S2 - Integumentary Integumentary: Present: normal turgor - Musculoskeletal Musculoskeletal: Present: gait normal - Psychiatric Psychiatric: Present: A&O x's 3, appropriate affect, intact judgment & insight - Additional findings Additional findings: Breast Exam: BRA: 40C Inspection: Right breast smaller than left breast related to prior surgery Palpation: Right breast: Multiple positional exam postop and post radiation changes but no evidence of any recurrent cancer Right axilla: No adenopathy of concern Left breast: Multi-positional exam no dominant masses or nodules of concern Left axilla: No adenopathy of concern Assessment and Plan Assessment: Impression: 1. Patient status post right breast lumpectomy and radiation therapy for stage IIIa right breast cancer, at this time no clinical evidence of recurrence. 2. Patient [place] 153 29[place] [id number] 3. Patient continues on Femara 4. Recent mammogram recommend repeat right breast mammogram in 3 months this was done on 5. Is not requiring any medication for bipolar disorder 6. Patient has stopped smoking Plan: 1. Continue Femara 2. Follow-up with Dr. Catalan regarding CA 153 3. Repeat right breast mammogram in 6 months time 4. Follow up here in 4 months time 5. Most recent PET scan done in June 2020 did not reveal any new evidence of concern for metastatic disease 6. continue to follow with Dr. Calabrese regarding thyroid levels CC: Dr. Calabrese
== END ==
LOC: WWCWWP 12:47
PROVIDERS: ATTEND Surgery
DX: C50.911 Malignant neoplasm of unspecified site of right female breast (principal); E03.9 Hypothyroidism, unspecified; Z79.811 Long term (current) use of aromatase inhibitors; Z87.891 Personal history of nicotine dependence

== ENCOUNTER → 2021-05-06 | Outpatient (CLI) | payer OTHER ==
--- NOTE | 2021-05-06 15:22 | XR ---
EXAMINATION TYPE: XR chest 2V DATE OF EXAM: 05/06/2021 COMPARISON: 09/27/2019 INDICATION: Short of breath TECHNIQUE: Frontal and lateral views of the chest are obtained. FINDINGS: The heart size is normal. The pulmonary vasculature is normal. The lungs are clear. Port is present on the right with the tip in superior vena cava region. IMPRESSION: 1. No acute pulmonary process.
== END | disposition home or self-care (01) ==
LOC: RADXRMAIN 14:42
PROVIDERS: ATTEND Internal Medicine Hematology & Oncology
DX: R06.02 Shortness of breath (principal)
CPT/HCPCS: 71046

== ENCOUNTER 2021-05-29 08:44 | Day surgery (SDC) | payer OTHER ==
--- NOTE | 2021-05-29 08:32 | P.GSHP ---
History of Present Illness H&P Date: 05/29/21 CHIEF COMPLAINT: Breast cancer. HISTORY OF PRESENT ILLNESS: The patient is a 60-year-old female diagnosed with invasive breast cancer. She had a Mediport placement. She presents for Port-A-Cath removal upon completion of her chemotherapy. PAST MEDICAL HISTORY: Breast cancer. PAST SURGICAL HISTORY: Breast biopsy. CURRENT MEDICATIONS: See list. ALLERGIES: See list. SOCIAL HISTORY: No active tobacco or alcohol use. FAMILY HISTORY: Noncontributory. REVIEW OF ORGAN SYSTEMS: CONSTITUTIONAL: Denies any fever or chills. HEENT: Denies any trouble with vision, hearing or nosebleeds. No difficulty swallowing. PHYSICAL EXAMINATION: Vital signs: Stable GENERAL: Well developed female and in no acute distress. Pleasant. HEENT: No sclera icterus. Extraocular movements grossly intact. Moist buccal mucosa. Head is atraumatic, normocephalic. Hears conversational speech. No nasal drainage. NECK: Supple without lymphadenopathy. No JV distention. CHEST: Non-labored respirations and equal bilateral excursions. CARDIOVASCULAR: Regular rate and rhythm. Palpable 2+ radial pulses. ABDOMEN: Nontender. MUSCULOSKELETAL: No clubbing, cyanosis or edema. NEUROLOGIC: No focal or lateralizing signs. PSYCH: Appropriate affect. Alert and oriented to person, place and time. ASSESSMENT: 1. Breast cancer. 2. Need for chemotherapeutic access. PLAN: 1. Agree with Port-A-Cath removal per patient's request. 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 RIGHT BREAST CA DIAGNOSED 12/2018, CHEMO IS COMPLETED. PORTACATH. HAYFEVER. HX OF HYPERTENSION. History of Any Multi-Drug Resistant Organisms: None Reported Past Surgical History: Breast Surgery, Orthopedic Surgery Additional Past Surgical History / Comment(s): US RIGHT BREAST BX. Dislocated LEFT elbow. Compound fracture right arm. Crushed ankle. D&C. LUMPECTOMY RIGHT BREAST Past Anesthesia/Blood Transfusion Reactions: No Reported Reaction Smoking Status: Former smoker - Past Family History Mother Family Medical History: No Reported History Medications and Allergies Home Medications Medication Instructions Recorded Confirmed Type Cholecalciferol [Vitamin D3 (25 5,000 unit PO DAILY 11/17/18 05/27/21 History Mcg = 1000 Iu)] ALPRAZolam [Xanax] 0.25 mg PO BID PRN 01/10/19 05/27/21 History Anastrozole [Arimidex] 1 mg PO HS 10/13/19 05/27/21 History Levothyroxine Sodium [Levoxyl] 100 mcg PO DAILY 04/18/20 05/27/21 History Losartan-Hctz 50-12.5 mg [Hyzaar 1 tab PO DAILY 01/17/21 05/27/21 History 50-12.5] Allergies Allergy/AdvReac Type Severity Reaction Status Date / Time ACTH INJECTION Allergy HEAD Uncoded 05/27/21 16:30 SWELLED UP
[~2021-05-29 08:44] MED LIST changes: +ACETAMINOPHEN TAB 500 MG TAB PO STA; -DEXAMETHASONE SOD PHOSPHATE 10 MG/ML 1 ML VIAL IV ONE; +DEXAMETHASONE SOD PHOSPHATE 4 MG/ML 1 ML VIAL IV ONE; -HEPARIN SODIUM,PORCINE 5,000 UNIT/ML 1 ML VIAL SQ ONE; -HYDROmorphone 0.5 MG/0.5 ML SYRINGE IVP PRN; -LACTATED RINGERS 1,000 ML IV SCH; -LIDOCAINE 1% 20 ML VIAL (10MG/ML) FOR IV START INTRADERMA PRN; -MIDAZOLAM 2 MG/2 ML VIAL IV PRN; -Pre Op ABX Message 1 EACH MISC MISCELLANE ONE; -SCOPOLAMINE 1.5MG/72HR PATCH TRANSDERM ONE; +fentaNYL (PF) 50 MCG/ML 2 ML AMP IV PRN
[2021-05-29 09:07] VITALS: TEMP 96.9
[2021-05-29] MEDS: LACTATED RINGERS 1,000 ML IV SCH ×2 (09:11→10:40)
[2021-05-29] MEDS ORDERED: MIDAZOLAM 2 MG/2 ML VIAL IVP ONE (09:56)
[2021-05-29] MEDS ORDERED: fentaNYL (PF) 50 MCG/ML 2 ML AMP ONE (10:39)
[2021-05-29] MEDS ORDERED: PROPOFOL 10 MG/ML 20 ML VIAL IV ONE (10:39)
[2021-05-29] MEDS ORDERED: MIDAZOLAM 2 MG/2 ML VIAL ONE (10:39)
[2021-05-29] MEDS ORDERED: LIDOCAINE 1%-EPI 1:100,000 20 ML VIAL SQ ONE ×2 (11:06→11:08)
--- NOTE | 2021-05-29 11:54 | P.OP ---
Date of Procedure: 05/29/21 Description of Procedure: SURGEON: DAPHNEY RHOADES MD EYEGLASS ASSEMBLER: None. PREOPERATIVE DIAGNOSIS: 1. Right breast cancer 2. Chemotherapeutic venous access. 3. Status post chemoradiation 4. Morbid obesity due to excess calories, BMI 37.3 5. Hypothyroidism 6. Hypertensive heart disease 7. Generalized anxiety disorder POSTOPERATIVE DIAGNOSIS: 1. Right breast cancer 2. Chemotherapeutic venous access. 3. Status post chemoradiation 4. Morbid obesity due to excess calories, BMI 37.3 5. Hypothyroidism 6. Hypertensive heart disease 7. Generalized anxiety disorder OPERATION: Removal of right internal jugular vein Port-A-Cath. ANESTHESIA: MAC with local ESTIMATED BLOOD LOSS: 1 mL SPECIMENS REMOVED: Port-A-Cath COMPLICATIONS: None. FINDINGS: 1. Unremarkable Port-a-cath extraction. INDICATIONS: The patient is a 60-year-old female who completed chemotherapy for breast cancer. She now has elected for removal. Benefits and risks were described. Informed consent was obtained. DESCRIPTION OF PROCEDURE: Patient was brought to the operating room, laid in supine position. After IV sedation the chest wall on the left side was prepped and draped in standard sterile fashion. Prior to incision, a timeout protocol was confirmed with surgical team regarding the patient's name including procedures to be performed. Antibiotics were given including placement of sequential compression devices for DVT prophylaxis. Attention was brought to the area of the port site, whereby local was infiltrated into the skin for a field block. A #11 blade was used to incise along the previous cicatrix. Electro- Bovie cautery was used to control for hemostasis. Adhesions were lysed around the Mediport. The port was extracted without sequelae. Pressure for 2 minutes was placed along the internal jugular vein. Hemostasis was checked along the pocket of the Port-A-Cath site. The wound was closed in layers using 3-0 Vicryl for the deep subcutaneous tissues followed by 4-0 Monocryl in a running subcuticular fashion. Dermabond was applied to the skin. Once dried a 4 x 4 Optifoam was applied. At the end of the procedure needle, sponge and instrument counts were verified correct by the manager surgical. The patient had tolerated the procedure well and was taken to postanesthesia care in stable condition. Plan - Discharge Summary Discharge Rx Participant: Yes New Discharge Prescriptions: New Acetaminophen Tab [Tylenol Tab] 1,000 mg PO Q6HR PRN #30 tablet PRN Reason: Pain Continue Cholecalciferol [Vitamin D3 (25 Mcg = 1000 Iu)] 5,000 unit PO DAILY ALPRAZolam [Xanax] 0.25 mg PO BID PRN PRN Reason: Anxiety Anastrozole [Arimidex] 1 mg PO HS Levothyroxine Sodium [Levoxyl] 100 mcg PO DAILY Losartan-Hctz 50-12.5 mg [Hyzaar 50-12.5] 1 tab PO DAILY Discharge Medication List Cholecalciferol [Vitamin D3 (25 Mcg = 1000 Iu)] 5,000 unit PO DAILY 11/17/18 [History] ALPRAZolam [Xanax] 0.25 mg PO BID PRN 01/10/19 [History] Anastrozole [Arimidex] 1 mg PO HS 10/13/19 [History] Levothyroxine Sodium [Levoxyl] 100 mcg PO DAILY 04/18/20 [History] Losartan-Hctz 50-12.5 mg [Hyzaar 50-12.5] 1 tab PO DAILY 01/17/21 [History] Acetaminophen Tab [Tylenol Tab] 1,000 mg PO Q6HR PRN #30 tablet 05/29/21 [Rx] Follow up Appointment(s)/Referral(s): Daphney Rhoades MD [STAFF PHYSICIAN] - As Needed Patient Instructions/Handouts: Central Line Removal (DC) Activity/Diet/Wound Care/Special Instructions: Remove dressing on June 02. May shower. No bathtub soaks for 2 weeks, June 12 EXPECT BRUISING AND SLEEP WITH 2 TO 3 PILLOWS. BRUISING RESOLVES IN 2 TO 3 WEEKS. Take Tylenol, Aleve or ibuprofen for pain as needed Discharge Disposition: HOME SELF-CARE
[2021-05-29 11:55] VITALS: BP 113/72; PULSE 58; RESP 17
== END 2021-05-29 12:15 | disposition home or self-care (01) ==
LOC: OR 08:44
PROVIDERS: ATTEND Surgery Plastic and Reconstructive Surgery
DX: C50.911 Malignant neoplasm of unspecified site of right female breast (principal); I10 Essential (primary) hypertension; M19.90 Unspecified osteoarthritis, unspecified site; G62.9 Polyneuropathy, unspecified; E66.09 Other obesity due to excess calories; Z68.37 Body mass index [BMI] 37.0-37.9, adult; E03.9 Hypothyroidism, unspecified; I11.9 Hypertensive heart disease without heart failure; F41.1 Generalized anxiety disorder; Z92.21 Personal history of antineoplastic chemotherapy; Z92.3 Personal history of irradiation; Z98.890 Other specified postprocedural states; Z87.891 Personal history of nicotine dependence; Z97.2 Presence of dental prosthetic device (complete) (partial); Z79.890 Hormone replacement therapy; Z79.899 Other long term (current) drug therapy; Z88.8 Allergy status to other drugs, medicaments and biological substances
CPT/HCPCS: 36589; J2250; J1100; J0690; J2405; J3010; J2704

== ENCOUNTER → 2021-06-26 | Outpatient (CLI) | payer OTHER ==
[2021-06-26 14:54] VITALS: BP 133/84; PULSE 80; RESP 18; TEMP 98.1
--- NOTE | 2021-06-26 15:06 | P.PN ---
Subjective Progress Note Date: 06/26/21 Principal diagnosis: stage III B invasive ductal breast cancer stage IIIB right breast cancer Erin is a 59 year old white female who presented with a stage IIIB right breast cancer in November 2018. She had neoadjuvant chemotherapy from January to April 2019 receiving Adriamyci n Cytoxan and Taxol. She had a right breast lumpectomy and node dissection on [id number]. She then had radiation therapy a total of 5000 cGy to the right breast and a thousand centigrays to the supraclavicular nodes. She is presently taking anastrozole The patient has no changes which are new in her breast for which she is concerned. The patient had her last bilateral mammogram on 01-14-21 noted to be postoperative and radiation changes in the right breast no lesions of concern were identified in the left breast and follow-up right breast mammogram in 6 months time was recommended. She had a PET scan performed on . This revealed mild uptake at the right costophrenic angle and aortopulmonary window of questionable clinical significance. Additionally an indeterminate abnormality was seen within the liver she had a red blood cell scan performed which revealed a hemangioma. PET scan from was performed which revealed no new areas of suspicious hypermetabolic uptake to suggest active neoplastic recurrence. Synthroid levels have been adjusted and she is doing well at this time. Laboratory studies most recently from 2 reveal a CA 15-[address] Catalan's note from 05-06-21 reviewed. Patient tolerating arimidex well. The patient's last bilateral mammogram was on 6120. At that time she was recommended to have a repeat right breast mammogram in 6 months time. Medical history: 1. Bipolar is not taking any medications at this time, doing well 2. Hypothyroid recently diagnosed and started on Synthroid Surgical history: 1. Right breast lumpectomy sentinal node biopsy dissection 2. Ankle surgery 3. Dislocated elbow 4. D&C 5. Hemorrhoids Social history: Smoke: Negative Alcohol: Negative Drugs: Negative Review of systems: HEENT: Blurred vision Lungs: Shortness of breath Heart: Negative GI: Negative : Postmenopausal Musculoskeletal: Arthritis Hematologic: Negative Psychiatric: Bipolar ALLERGIES: Seasonal Objective - Vital Signs Vital signs: Intake & Output 06/25/21 06/26/21 06/26/21 18:59 06:59 18:59 Weight 81.647 kg - Exam BMI 30.9 - Constitutional General appearance: Present: cooperative - EENT Eyes: Present: EOMI ENT: Present: hearing grossly normal - Neck Neck: Present: normal ROM - Respiratory Respiratory: bilateral: CTA - Cardiovascular Rhythm: regular Heart sounds: normal: S1, S2 - Gastrointestinal General gastrointestinal: Present: soft - Integumentary Integumentary: Present: normal turgor - Musculoskeletal Musculoskeletal: Present: gait normal - Psychiatric Psychiatric: Present: A&O x's 3, appropriate affect, intact judgment & insight - Additional findings Additional findings: Breast Exam: BRA: 40C inspection: Asymmetry of the breast, right breast smaller than left breast; right breast grade 2 ptosis, left breast grade 3 ptosis Palpation: Right breast: Multi-positional exam fibrocystic changes, postop postradiation changes, no dominant masses or nodules of concern Right axilla: No adenopathy of concern Left breast: Multi-positional exam fibrocystic changes no dominant masses or nodules of concern Left axilla: No adenopathy of concern Assessment and Plan Assessment: Imprssion: 1. Right breast status post lumpectomy and sentinel node biopsy for stage IIIB invasive ductal carcinoma 2. Patient presently on Annestrazole 3. Patient for repeat right breast mammogram 4. patient stopped smoking 2 years ago Plan: 1. Right breast mammogram; if this is stable patient is interested in having a left breast reduction mammoplasty secondary to the asymmetry of the breast 2. We'll discuss reduction mammoplasty with Dr. Catalan; would like to assure that there is no evidence of metastatic disease 3. Patient to follow up for report of right breast mammogram after this is performed CC: Dr. Catalan Cc: Dr. Calabrese
== END ==
LOC: WWCWWP 14:20
PROVIDERS: ATTEND Surgery
DX: C50.911 Malignant neoplasm of unspecified site of right female breast (principal); E03.9 Hypothyroidism, unspecified; F31.9 Bipolar disorder, unspecified; Z79.811 Long term (current) use of aromatase inhibitors; Z87.891 Personal history of nicotine dependence; Z98.890 Other specified postprocedural states; Z88.8 Allergy status to other drugs, medicaments and biological substances

== ENCOUNTER → 2021-07-28 | Outpatient (CLI) | payer OTHER ==
--- NOTE | 2021-07-29 09:49 | MM ---
Reason for exam: follow-up at short interval from prior study. Last mammogram was performed 6 months ago. History: Patient is postmenopausal and has history of breast cancer at age 58. Family history of breast cancer in maternal grandmother at age 40. Malignant MG pre op needle loc RT of the right breast, June 13, 2019. Malignant US breast localization RT of the right breast, June 13, 2019. Lumpectomy of the right breast, June 13, 2019. Benign US biopsy breast VAD LT of the left breast, January 20, 2019. Benign US biopsy breast add'l VAD LT of the left breast, January 20, 2019. Malignant US breast needle core addl RT of the right breast, November 23, 2018. Malignant US biopsy breast VAD RT of the right breast, November 23, 2018. Taking antineoplastic beginning at age 58. Physical Findings: Nurse did not find any significant physical abnormalities on exam. MG Diagnostic Mammo RT w CAD CC and MLO view(s) were taken of the right breast. Prior study comparison: January 14, 2021, bilateral MG diagnostic mammo w CAD ROSA. January 10, 2020, bilateral MG diagnostic mammo w CAD ROSA. The breast tissue is heterogeneously dense. This may lower the sensitivity of mammography. Chronic skin thickening. No significant new findings when compared with previous films. These results were verbally communicated with the patient and result sheet given to the patient on 07/28/21. ASSESSMENT: Benign, BI-RAD 2 RECOMMENDATION: Routine screening mammogram of both breasts in 6 months. Back on schedule.
== END | disposition home or self-care (01) ==
LOC: RADMAMWWP 15:04
PROVIDERS: ATTEND Surgery
DX: N64.59 Other signs and symptoms in breast (principal); Z85.3 Personal history of malignant neoplasm of breast; Z80.3 Family history of malignant neoplasm of breast; Z78.0 Asymptomatic menopausal state
CPT/HCPCS: 77065

== ENCOUNTER → 2021-12-16 | Outpatient (CLI) | payer OTHER ==
--- NOTE | 2021-12-16 11:41 | BD ---
EXAMINATION TYPE: Axial Bone Density DATE OF EXAM: 12/16/2021 COMPARISON: Prior DEXA bone scan September 26, 2019 CLINICAL HISTORY: 61 year old Female. ICD-10 CODE: C50.411 Z79.890 Height: 64 Weight: 184.7 FRAX RISK QUESTIONS: Alcohol (3 or more units per day): no Family History (Parent hip fracture): no Glucocorticoids (More than 3mos): no (Ex: prednisone, prednisolone, methylprednisolone, dexamethasone, and hydrocortisone). History of Fracture in Adulthood: yes Secondary Osteoporosis: 1. Type 1 Diabetes: no 2. Hyperthyroidism: no 3. Menopause before 45: no 4. Malnutrition: no 5. Chronic liver disease: no Rheumatoid Arthritis: no Current Tobacco Use: no RISK FACTORS HISTORY OF: Surgery to Spine/Hip(right/left)/Wrist (right/left): no Family History of Osteoporosis: no Active: no Diet low in dairy products/other sources of calcium: yes Postmenopausal woman: yes Lost more than 2 inches in height since high school: no MEDICATIONS: breast cancer hormone Thyroid Medications: levothyroxine How Lon year Additional History: EXAM MEASUREMENTS: Bone mineral densitometry was performed using the [employer]. Bone mineral density as measured about the Lumbar spine is: ----- L1-L4(G/cm2): 1.061 T Score Values are as follows: ----- L1: -0.8 ----- L2: -0.7 ----- L3: -1.5 ----- L4: -1.1 ----- L1-L4: -1.0 Bone mineral density has: decreased -8.6 % since study of: 09.26.2019 Bone mineral density about the R hip (g/cm2): 0.750 Bone mineral density about the L hip (g/cm2): 0.835 T Score values are as follows: -----R Neck:-2.1 -----L Neck: -1.5 -----R Total: -1.1 -----L Total: -0.9 Bone mineral density has: increased 1.9 % since study of: 09.26.2019 FRAX%s: The graph provided illustrates a 16.8% chance for a major osteoporotic fx and a 2.5% chance f or the hips probability for fx in 10 years time. IMPRESSION: Osteopenia (T Score between -2.5 and -1) is redemonstrated. There remains slightly increased risk of fracture and the patient may be considered for treatment. Re-Screen 2-5 years. NOTE: T-SCORE=SD OF THE YOUNG ADULT MEAN.
== END | disposition home or self-care (01) ==
LOC: RADBDWWP 08:58
PROVIDERS: ATTEND Internal Medicine Hematology & Oncology
DX: M85.89 Other specified disorders of bone density and structure, multiple sites (principal); C50.411 Malignant neoplasm of upper-outer quadrant of right female breast; Z79.890 Hormone replacement therapy
CPT/HCPCS: 77080

== ENCOUNTER → 2022-02-11 | Outpatient (CLI) | payer OTHER ==
--- NOTE | 2022-02-11 13:40 | MM ---
Reason for Exam: Hx of breast cancer, conservation therapy. Last screening mammogram was performed 12 month(s) ago. Patient History: Menarche at age 9. First Full-Term at age 27. Postmenopausal. Patient has history of breast feeding. Breast cancer, right, age 58. Previous DCIS pathology result. Previous chest radiation therapy at age 58. Previous chemotherapy at age 58. 06/13/2019, Lumpectomy on the Right side. 06/13/2019, Malignant Core Biopsy on the right side. 06/13/2019, Malignant Core Biopsy on the right side. 01/20/2019, Benign Core Biopsy on the left side. 01/20/2019, Benign Core Biopsy on the left side. 11/23/2018, Malignant Core Biopsy on the right side. 11/23/2018, Malignant Core Biopsy on the right side. Maternal grandmother had breast cancer, age 40. Prior Study Comparison: 01/10/2020 Bilateral Diagnostic Mammogram, [facility]. 01/14/2021 Bilateral Diagnostic Mammogram, [facility]. 07/28/2021 Right Diagnostic Mammogram, [facility]. Tissue Density: There are scattered fibroglandular densities. Findings: Analyzed By CAD. Postsurgical biopsy clips are within the right breast 12:00 posterior position. Additional core markers are within the left breast. Skin thickening is present through the right breast. No suspicious groups of microcalcifications, spiculated or lobular masses, architectural distortion or other secondary signs of malignancy are mammographically apparent. Overall Assessment: Benign, BI-RAD 2 Management: Diagnostic Mammogram of both breasts in 1 year. A negative mammogram report should not preclude additional follow up of suspicious palpable abnormalities. Patient should continue monthly self breast exam. A clinical breast exam by your physician is recommended on an annual basis and results should be correlated with mammographic findings. Electronically signed and approved by: Fer Jara D.O. Radiologis
== END | disposition home or self-care (01) ==
LOC: RADMAMWWP 13:03
PROVIDERS: ATTEND Radiology Radiation Oncology
DX: R92.8 Other abnormal and inconclusive findings on diagnostic imaging of breast (principal); Z85.3 Personal history of malignant neoplasm of breast; Z78.0 Asymptomatic menopausal state
CPT/HCPCS: 77066

== ENCOUNTER → 2023-02-11 | Outpatient (CLI) | payer OTHER ==
--- NOTE | 2023-02-12 16:51 | MM ---
Reason for Exam: Screening (asymptomatic). Last screening mammogram was performed 12 month(s) ago. Patient History: Menarche at age 9. First Full-Term at age 27. Postmenopausal. Patient has history of breast feeding. Breast cancer, right, age 58. Previous DCIS pathology result. Previous chest radiation therapy at age 58. Previous chemotherapy at age 58. 06/13/2019, Lumpectomy on the Right side. 06/13/2019, Malignant Core Biopsy on the right side. 06/13/2019, Malignant Core Biopsy on the right side. 01/20/2019, Benign Core Biopsy on the left side. 01/20/2019, Benign Core Biopsy on the left side. 11/23/2018, Malignant Core Biopsy on the right side. 11/23/2018, Malignant Core Biopsy on the right side. 2019, Chemotherapy. 2019, Chemotherapy. 2018, Radiation Therapy on the right side. Maternal grandmother had breast cancer, age 40. Prior Study Comparison: 01/14/2021 Bilateral Diagnostic Mammogram, [facility]. 07/28/2021 Right Diagnostic Mammogram, [facility]. 02/11/2022 Bilateral MG diagnostic mammo w CAD ROS[facility], [facility]. Tissue Density: The breast tissue is heterogeneously dense. This may lower the sensitivity of mammography. Findings: Analyzed By CAD. Surgical clips are in. Left breast is larger than the right. The right breast. A core marker is within the left breast. Findings are stable from comparison. No suspicious groups of microcalcifications, spiculated or lobular masses, architectural distortion or other secondary signs of malignancy are mammographically apparent. Overall Assessment: Benign, BI-RAD 2 Management: Screening Mammogram of both breasts in 1 year. A negative mammogram report should not preclude additional follow up of suspicious palpable abnormalities. Patient should continue monthly self breast exam. A clinical breast exam by your physician is recommended on an annual basis and results should be correlated with mammographic findings. Electronically signed and approved by: Fer Jara D.O. Radiologis
== END | disposition home or self-care (01) ==
LOC: RADMAMWWP 09:00
PROVIDERS: ATTEND Internal Medicine Hematology & Oncology
DX: Z12.31 Encounter for screening mammogram for malignant neoplasm of breast (principal); Z78.0 Asymptomatic menopausal state; Z80.3 Family history of malignant neoplasm of breast
CPT/HCPCS: 77067

== ENCOUNTER → 2023-09-24 | Outpatient (CLI) | payer OTHER ==
--- NOTE | 2023-09-24 11:37 | XR ---
EXAMINATION TYPE: XR chest 2V DATE OF EXAM: 09/24/2023 COMPARISON: 05/06/2021 HISTORY: Shortness of breath TECHNIQUE: Frontal and lateral views of the chest are obtained. FINDINGS: Scattered senescent parenchymal changes noted. Hyperinflation compatible with COPD. No evidence for infiltrate. No evidence for atelectasis. Heart size is stable. Mediastinal structures are stable and grossly unremarkable. No evidence for hilar prominence. Degenerative changes dorsal spine. IMPRESSION: 1. No evidence for acute pulmonary disease.
== END | disposition home or self-care (01) ==
LOC: RADXRMAIN 11:17
PROVIDERS: ATTEND Internal Medicine Geriatric Medicine
DX: R06.02 Shortness of breath (principal)
CPT/HCPCS: 71046

== ENCOUNTER → 2023-10-01 | Outpatient (CLI) | payer OTHER ==
--- NOTE | 2023-10-01 12:21 | CA ---
Stress Echo Report Erin Dowell Age: 63 Gender: F : 1960 Exam Date: 10/01/2023 09:42 Exam Location: [facility] Stress Ht (in): 64 Wt (lb): 186 Ordering Physician: Scott Calabrese MD Referring Physician: FIDELINA,, Cash Analyst: DI SAL Technologist Procedure CPT: Indication: I20.9 ANGINA PECTORIS, UNSPECIFIED ICD-9 Codes: Rhythm: Patient History: Cardiac Medications: Medications in past 24 hours: Contrast: N/A Stress Results Protocol: Brandin Total dose(mL): NA Exercise Duration (min:sec): 5:[address] Depression (mm): Angina Score: Ruiz Score: METS: 6.8 Resting HR: 69 Resting BP: 150 / 69 Peak HR: 127 Peak BP: 198 / 90 Max Predicted HR: 156 81 % Max Predicted HR Target HR: 133 Double Product: 54038 Stress Summary: BP Response: Reason for Termination: SHORTNESS OF BREATH, PATIENT REQUESTED STOP TEST Cardiac Symptoms: SHORTNESS OF BREATH ECG Analysis Resting ECG: Stress ECG: Arrhythmia: Echo Analysis Resting Echo: Peak Echo Analysis: MEASUREMENTS (Male/Female) Normal Values CONCLUSIONS Patient underwent exercise stress echo with a Brandin protocol treadmill stress test. Patient exercised into Stage 2 for a total of 5 minutes and 7 seconds reaching a total of 6.8 METS. Patient's maximum heart rate was 127 which represented 81% age- predicted maximum heart rate. Stress EKG portion: At baseline patient's EKG showed normal sinus rhythm, normal axis, no significant ST or T wave abnormalities. At peak exercise, EKG showed frequent PVCs, mild upsloping 0.[address] depressions in the inferior lateral leads. Stress echo portion: 2-D echocardiogram was performed in the parasternal long, personal short, apical 2 and apical four-chamber views at rest, peak exercise and in recovery. At baseline, echocardiogram showed left ventricular ejection fraction 55% without wall motion abnormalities. With peak exercise, echocardiogram shows basal to mid inferior hypokinesis consistent with ischemia. Conclusions: 1. Technically inadequate stress test given inability to reach 85% maximum predicted heart rate 2. At 81% maximum predicted heart rate, inducible inferior ischemia. 3. Poor exercise capacity. Dr. Terry Jonas DO (Electronically Signed) Final Date: 01 October 2023 12:20
== END | disposition home or self-care (01) ==
LOC: RADNMMAIN 09:22
PROVIDERS: ATTEND Internal Medicine Geriatric Medicine
DX: I20.9 Angina pectoris, unspecified (principal)
CPT/HCPCS: 93351

== ENCOUNTER → 2024-02-14 | Outpatient (CLI) | payer OTHER ==
--- NOTE | 2024-02-15 09:45 | MM ---
Reason for Exam: Hx of breast cancer, conservation therapy. Last mammogram was performed 1 year(s) and 1 month(s) ago. Patient History: Menarche at age 9. First Full-Term at age 27. Postmenopausal. Patient has history of breast feeding. Breast cancer, right, age 58. Previous DCIS pathology result. Previous chest radiation therapy at age 58. Previous chemotherapy at age 58. 06/13/2019, Lumpectomy on the Right side. 06/13/2019, Malignant Core Biopsy on the right side. 06/13/2019, Malignant Core Biopsy on the right side. 01/20/2019, Benign Core Biopsy on the left side. 01/20/2019, Benign Core Biopsy on the left side. 11/23/2018, Malignant Core Biopsy on the right side. 11/23/2018, Malignant Core Biopsy on the right side. 2019, Chemotherapy. 2019, Chemotherapy. 2018, Radiation Therapy on the right side. Maternal grandmother had breast cancer, age 40. Prior Study Comparison: 10/27/2018 Bilateral Screening Mammogram, [facility]. 11/23/2018 Right Diagnostic Mammogram, [facility]. 01/20/2019 Left Diagnostic Mammogram, [facility]. 06/06/2019 Right Diagnostic Ultrasound, [facility]. 01/10/2020 Bilateral Diagnostic Mammogram, [facility]. 01/14/2021 Bilateral Diagnostic Mammogram, [facility]. 07/28/2021 Right Diagnostic Mammogram, [facility]. 02/11/2022 Bilateral MG diagnostic mammo w CAD [facility], [facility]. 02/11/2023 Bilateral MG screening mammo w CAD, [facility]. Tissue Density: The breasts are heterogeneously dense, which may obscure small masses. Findings: Analyzed By CAD. Two microclips left breast from prior biopsies. Postsurgical and posttreatment change redemonstrated right breast. Areas of asymmetric density on the right side are unchanged. There is no suspicious group of microcalcifications or new suspicious mass in either breast. Overall Assessment: Benign, BI-RAD 2 Management: Screening Mammogram of both breasts in 1 year. . Patient should continue monthly self-breast exams. A clinical breast exam by your physician is recommended on an annual basis. This exam should not preclude additional follow-up of suspicious palpable abnormalities. Electronically signed and approved by: Levi Soto M.D. Radiologist
--- NOTE | 2024-02-15 13:40 | BD ---
EXAMINATION TYPE: Axial Bone Density DATE OF EXAM: 02/14/2024 CLINICAL HISTORY: 63 years old Female. ICD-10 CODE: C50.411 Height: 64 Weight: 180.2 FRAX RISK QUESTIONS: Alcohol (3 or more units per day): no Family History (Parent hip fracture): no Glucocorticoids (More than 3mos): no (Ex: prednisone, prednisolone, methylprednisolone, dexamethasone, and hydrocortisone). History of Fracture in Adulthood: yes Secondary Osteoporosis: 1. Type 1 Diabetes: no 2. Hyperthyroidism: no 3. Menopause before 45: no 4. Malnutrition: no 5. Chronic liver disease: no Rheumatoid Arthritis: no Current Tobacco Use: no RISK FACTORS HISTORY OF: Surgery to Spine/Hip(right/left)/Wrist (right/left): no MEDICATIONS: Thyroid Medications: levothyroxine How Lon years EXAM MEASUREMENTS: Bone mineral densitometry was performed using the [employer] System. Bone mineral density as measured about the Lumbar spine is: ----- L1-L4(G/cm2): 1.088 T Score Values are as follows: ----- L1: -0.2 ----- L2: -0.8 ----- L3: -1.4 ----- L4: -0.7 ----- L1-L4: -0.8 Z Score Values are as follows: ----- L1: 0.8 ----- L2: 0.2 ----- L3: -0.4 ----- L4: 0.3 ----- L1-L4: 0.2 Bone mineral density has: increased 2.5 % since study of: 01.12.2022 Bone mineral density about the R hip (g/cm2): 0.897 Bone mineral density about the L hip (g/cm2): 0.8 T Score values are as follows: -----R Neck: -1.8 -----L Neck: -1.8 -----R Total: -1.0 -----L Total: -1.0 Z Score values are as follows: -----R Neck: -0.7 -----L Neck: -0.7 -----R Total: -0.3 -----L Total: -0.3 Bone mineral density has: increased 0.3 % since study of: [id number] FRAX%s: The graph provided illustrates a 15.7% chance for a major osteoporotic fx and a 2.0% chance f or the hips probability for fx in 10 years time. IMPRESSION: Osteopenia (T Score between -2.5 and -1). There is slightly increased risk of fracture and the patient may be considered for treatment. Re-Screen 2-5 years. NOTE: T-SCORE=SD OF THE YOUNG ADULT MEAN.
== END | disposition home or self-care (01) ==
LOC: RADMAMWWP 12:04
PROVIDERS: ATTEND Internal Medicine Hematology & Oncology
DX: Z12.31 Encounter for screening mammogram for malignant neoplasm of breast (principal); C50.411 Malignant neoplasm of upper-outer quadrant of right female breast; M85.88 Other specified disorders of bone density and structure, other site; Z78.0 Asymptomatic menopausal state; Z80.3 Family history of malignant neoplasm of breast
CPT/HCPCS: 77067; 77080

== ENCOUNTER → 2025-02-14 | Outpatient (CLI) | payer MEDICARE ==
--- NOTE | 2025-02-14 15:19 | MM ---
Reason for Exam: Screening (asymptomatic). Last screening mammogram was performed 12 month(s) ago. Patient History: Menarche at age 9. First Full-Term at age 27. Postmenopausal. Patient has history of breast feeding. Breast cancer, right, age 58. Previous DCIS pathology result. Previous chest radiation therapy at age 58. Previous chemotherapy at age 58. 06/13/2019, Lumpectomy on the Right side. 06/13/2019, Malignant Core Biopsy on the right side. 06/13/2019, Malignant Core Biopsy on the right side. 01/20/2019, Benign Core Biopsy on the left side. 01/20/2019, Benign Core Biopsy on the left side. 11/23/2018, Malignant Core Biopsy on the right side. 11/23/2018, Malignant Core Biopsy on the right side. 2019, Chemotherapy. 2019, Chemotherapy. 2018, Radiation Therapy on the right side. Maternal grandmother had breast cancer, age 40. Prior Study Comparison: 02/11/2022 Bilateral MG diagnostic mammo w [facility], [facility]. 02/11/2023 Bilateral MG screening mammo w CAD, [facility]. 02/14/2024 Bilateral MG screening mammo w CAD, [facility]. Tissue Density: The breasts are heterogeneously dense, which may obscure small masses. Findings: Analyzed By CAD. Redemonstrated postsurgical and posttreatment changes right breast. Microplates left breast from prior biopsies. Bilateral areas of asymmetric densities remain unchanged. There is no suspicious group of microcalcifications or new suspicious mass in either breast. Overall Assessment: Benign, BI-RAD 2 Management: Screening Mammogram of both breasts in 1 year. Patient should continue monthly self-breast exams. A clinical breast exam by your physician is recommended on an annual basis. This exam should not preclude additional follow-up of suspicious palpable abnormalities. [facility], , 02/14/2025 3:16 PM. Electronically signed and approved by: Levi Soto M.D. Radiologist
== END | disposition home or self-care (01) ==
LOC: RADMAMWWP 10:47
PROVIDERS: ATTEND Internal Medicine Hematology & Oncology
DX: Z12.31 Encounter for screening mammogram for malignant neoplasm of breast (principal); R92.333 Mammographic heterogeneous density, bilateral breasts; Z78.0 Asymptomatic menopausal state; Z80.3 Family history of malignant neoplasm of breast
CPT/HCPCS: 77067